=== PATIENT | female | born 1960 | race Caucasian/White ===

== ENCOUNTER 2020-09-09 07:18 | Outpatient (REF) | payer OTHER, SELFPAY ==
[2020-09-09 11:18] LABS: Hematocrit 44.7 % (37-47); Hemoglobin 14.2 g/dl (12.0-16.0); Mean Corpuscular HGB Conc 31.8 g/dl (31.0-35.0); Mean Corpuscular Hemoglobin 28.6 pg (27.0-33.0); Mean Corpuscular Volume 90.1 fL (80-98); Mean Platelet Volume 9.9 fL (9.4-12.3); Platelet Count 255 X10*3/uL (160-400); Red Blood Count 4.96 X10*6/uL (4.20-5.50); Red Cell Distribution Width 12.5 % (11.0-16.0); White Blood Count 4.7 X10*3/uL (4.8-10.8)
[2020-09-09 11:43] LABS: Alanine Aminotransferase 16 U/L (0-31); Anion Gap 13 (12-20); Aspartate Amino Transferase 22 U/L (5-31); Blood Urea Nitrogen 19 mg/dL (9-16); Calcium 8.7 mg/dL (8.4-10.2); Carbon Dioxide 27 mmol/L (22-29); Chloride 100 mmol/L (96-108); Cholesterol 188 mg/dL; Estimated Glomerular Filt Rate > 60; Glucose Fasting 87 mg/dL (60-99); HDL Cholesterol 60 mg/dL; LDL Cholesterol Calculated 115 mg/dl; Potassium 4.1 mmol/L (3.3-5.1); Sodium 136 mmol/L (135-145); Triglycerides 68 mg/dL
[2020-09-09 12:06] LABS: Free T4 (Free Thyroxine) 1.12 ng/dL (0.71-1.85); Thyroid Stimulating Hormone 3.99 uIU/mL (0.32-4.0); Vitamin D 25-OH Total 42.9 ng/mL (>30)
== END 2020-09-09 07:19 | disposition home or self-care (01) ==
LOC: HO.HMGCLDS 07:18
PROVIDERS: PCP Internal Medicine; Visit Provider Internal Medicine
DX: E78.5 Hyperlipidemia, unspecified (principal); E03.9 Hypothyroidism, unspecified; M85.852 Other specified disorders of bone density and structure, left thigh; Z78.0 Asymptomatic menopausal state
CPT/HCPCS: 36415; 80048; 80061; 82306; 84439; 84443; 84450; 84460; 85027

== ENCOUNTER 2021-04-13 08:18 | Outpatient (REF) | payer OTHER, SELFPAY ==
--- NOTE | ~2021-04-13 | MM_ITS ---
EXAMINATION: MM SCREENING DIGITAL BREAST TOMOSYNTHESIS, BILATERAL CLINICAL INFORMATION: Screening. Asymptomatic. The lifetime risk of breast cancer based on the Tyrer-Cuzick Model is 19.4%. COMPARISON: Mammography: April 08, 2020 and studies dating back to February 19, 2014 TECHNIQUE: Digital breast tomosynthesis is performed in both the craniocaudal and mediolateral oblique views along with computer-aided detection (CAD). Synthesized 2D images are generated from the tomosynthesis. FINDINGS: The breasts are heterogeneously dense, which may obscure small masses (ACR BI-RADS breast composition Category c). There are no significant masses, abnormal calcifications, or other abnormalities. MM/MM tomosynthesis screening BI IMPRESSION: There are no significant changes from prior study. ASSESSMENT: BI-RADS 1: Negative RECOMMENDATION: Routine annual mammography screening. This patient's information was entered into a reminder system with a target due date for their next mammogram.
--- NOTE | ~2021-04-13 | MM_ITS ---
EXAMINATION: BONE DENSITOMETRY CLINICAL INDICATION: Other specified disorders of bone density and structure. COMPARISON: Baseline BD dated 08/14/2015. TECHNIQUE: Using a [employer] DXA System (software version: 13.1) manufactured by [employer], dual-energy x-ray absorptiometry was performed of the lumbar spine and left hip. The images are of good technical quality. Summary results are attached. FINDINGS: AP SPINE L1-L4: Current: BMD 1.345 g/cm2, Z-score 2.8, T-score 1.4, normal, 1.2% increase from baseline (<5% change is not significant). Baseline: BMD 1.329 g/cm2. LEFT FEMUR, NECK: Current: BMD 0.768 g/cm2, Z-score -0.6, T-score -1.9, osteopenia. Baseline: BMD 0.856 g/cm2. LEFT FEMUR, TOTAL: Current: BMD 0.853 g/cm2, Z-score -0.2, T-score -1.2, osteopenia, 2.7% decrease from baseline (<5% change is not significant). Baseline: BMD 0.877 g/cm2. IDENTIFIED RISK FACTORS: Menopause. HISTORY OF FRACTURE: None listed. MEDICATIONS: Calcium supplements or multivitamin, vitamin D. MM/XR DEXA axial skeleton IMPRESSION: 1. DIAGNOSIS: Osteopenia based on the lowest T-score value of -1.9 in the femoral neck applying World Health Organization criteria. 2. 10-YEAR FRACTURE RISK PREDICTION, FRAX: Major osteoporotic fracture (clinical spine, forearm, hip or shoulder) 9.7%. Hip fracture 1.3%. 3. Treatment Recommendations: NOF guidelines recommend consideration for treatment in postmenopausal women and men age 50 and older presenting with the following: -A hip or vertebral (clinical or morphometric) fracture. -T-score less than or equal to -2.5 at the femoral neck or spine after appropriate evaluation to exclude secondary causes. -Low bone mass at the hip or spine and a 10-year fracture probability by FRAX of greater than or equal to 3% for hip fracture or greater than or equal to 20% for major osteoporotic fracture based on the [place] adapted WHO algorithm. 4. Other Recommendations: All treatment decisions require clinical judgment and consideration of individual patient factors, including patient preferences, comorbidities, previous drug use, risk factors not captured in the FRAX model (e.g. frailty, falls, vitamin D deficiency, increased bone turnover, interval significant decline in bone density) and possible under or overestimation of fracture risk by FRAX. Additional medical evaluation for secondary cause of low bone mineral density may be appropriate. FUTURE SCAN RECOMMENDATION: People with diagnosed cases of osteoporosis or at high risk for fracture should have regular bone mineral density tests. For patients eligible for Medicare, routine testing is allowed once every 2 years. The testing frequency can be increased to one year for patients who have rapidly progressing disease, those who are receiving or discontinuing medical therapy to restore bone mass, or have additional risk factors.
[2021-04-13 12:02] LABS: Alanine Aminotransferase 18 U/L (0-31); Aspartate Amino Transferase 19 U/L (5-31); Cholesterol 190 mg/dL; HDL Cholesterol 63 mg/dL; LDL Cholesterol Calculated 112 mg/dl; Triglycerides 79 mg/dL
[2021-04-13 12:25] LABS: Free T4 (Free Thyroxine) 1.05 ng/dL (0.71-1.85); Thyroid Stimulating Hormone 3.78 uIU/mL (0.32-4.0)
== END 2021-04-13 08:19 | disposition home or self-care (01) ==
LOC: HO.MAMMO 08:18
PROVIDERS: PCP Internal Medicine; Visit Provider Internal Medicine
DX: Z12.31 Encounter for screening mammogram for malignant neoplasm of breast (principal); Z13.820 Encounter for screening for osteoporosis; M85.852 Other specified disorders of bone density and structure, left thigh; Z78.0 Asymptomatic menopausal state; E78.5 Hyperlipidemia, unspecified; E03.9 Hypothyroidism, unspecified; Z79.899 Other long term (current) drug therapy
CPT/HCPCS: 36415; 77063; 77067; 77080; 80061; 82306; 84439; 84443; 84450; 84460

== ENCOUNTER 2021-10-13 08:40 | Outpatient (REF) | payer OTHER, SELFPAY ==
[2021-10-13 12:20] LABS: Alanine Aminotransferase 18 U/L (0-31); Anion Gap 12 (12-20); Aspartate Amino Transferase 21 U/L (5-31); Blood Urea Nitrogen 15 mg/dL (9-16); Calcium 9.5 mg/dL (8.4-10.2); Carbon Dioxide 28 mmol/L (22-29); Chloride 102 mmol/L (96-108); Cholesterol 187 mg/dL; Estimated Glomerular Filt Rate > 60; Glucose Fasting 100 mg/dL (60-99); HDL Cholesterol 57 mg/dL; LDL Cholesterol Calculated 115 mg/dl; Potassium 4.5 mmol/L (3.3-5.1); Sodium 137 mmol/L (135-145); Triglycerides 76 mg/dL
[2021-10-13 12:47] LABS: Free T4 (Free Thyroxine) 1.11 ng/dL (0.71-1.85); Thyroid Stimulating Hormone 3.49 uIU/mL (0.32-4.0)
[2021-10-14 14:31] LABS: Vitamin D 25-OH Total 40.5 ng/mL (>30)
== END 2021-10-13 08:41 | disposition home or self-care (01) ==
LOC: HO.HMGCLDS 08:40
PROVIDERS: Visit Provider Internal Medicine
DX: E03.9 Hypothyroidism, unspecified (principal); E78.5 Hyperlipidemia, unspecified; M85.852 Other specified disorders of bone density and structure, left thigh; I10 Essential (primary) hypertension; Z78.0 Asymptomatic menopausal state
CPT/HCPCS: 36415; 80048; 80061; 82306; 84439; 84443; 84450; 84460

== ENCOUNTER 2022-01-14 08:28 | Day surgery (SDC) | payer OTHER, SELFPAY ==
[2022-01-07 12:41] VITALS: BMI 24.6
--- NOTE | 2022-01-12 15:16 | P.CONAN_ITS ---
Documented by User: Gisela Baig NP 01/12/22 15:17 HPI - Anesthesia Eval Consult details Narrative: 61yo F for Colonoscopy PMFSH Active Problems Active Problems: All Active Problems (Updated 10/18/21 @ 10:48 by Savita Butterfield MD) Anxiety with flying (Acute) Hx of malignant melanoma (Acute) Osteopenia of multiple sites (Acute) Malignant melanoma of chest wall (Acute) Tubular adenoma of colon (Acute) Acquired hypothyroidism (Acute) Postmenopausal (Acute) Dyslipidemia (Acute) Past Medical History Medical History (Updated 10/18/21 @ 10:48 by Savita Butterfield MD) History of mammogram History of Papanicolaou smear of cervix Family History Family History Father HTN (hypertension) Hyperlipidemia Sepsis Mother Medical history non-contributory Brother No problems noted. Brother No problems noted. Sister No problems noted. Son No problems noted. Daughter No problems noted. Surgical History Surgical History H/O melanoma excision History of colonoscopy History of lipoma Social History Social History Housing: House Alcohol intake: current Alcohol intake frequency: does not drink Patient Tobacco Use Status: Never used Tobacco e-Cigarette/Vaping Use: Never Used Second Hand Smoke Exposure: No Use of substances other than those prescribed or required for medical reasons: No Are you DNR?: No Advance Directives: No Advance Directives Information Provided: Yes Advance Directives on File: No Current occupational status: retired Cognitive needs: No Hearing needs: No Vision needs: No Meds Allergies Allergy/AdvReac Type Severity Reaction Status Date / Time No Known Allergies Allergy Verified 10/18/21 09:57 [No Known Allergies*] Exam Exam Date and Time: January 12, 2022 1516 Height,Weight and Vital Signs: Height 5 ft 4.5 in Weight 66.224 kg Pertinent Lab Results Pertinent Lab Results: Laboratory Tests 10/13/21 08:47 Sodium 137 Potassium 4.5 Chloride 102 Carbon Dioxide 28 BUN 15 Creatinine 0.79 Assessment and Plan Assessment Anesthesia Assessment: Chart Reviewed Documented by User: Jorge Lazo MD 01/18/22 19:02 [facility] Past Medical History Medical History (Updated 10/18/21 @ 10:48 by Savita Butterfield MD) History of mammogram History of Papanicolaou smear of cervix Functional capacity: independent ambulation Family History Family History Father HTN (hypertension) Hyperlipidemia Sepsis Mother Medical history non-contributory Brother No problems noted. Brother No problems noted. Sister No problems noted. Son No problems noted. Daughter No problems noted. Family history of problems with anesthesia: No Surgical History Surgical History H/O melanoma excision History of colonoscopy History of lipoma History of Problems with Anesthesia: No Social History Social History Housing: House Alcohol intake: current Alcohol intake frequency: does not drink Patient Tobacco Use Status: Never used Tobacco e-Cigarette/Vaping Use: Never Used Second Hand Smoke Exposure: No Use of substances other than those prescribed or required for medical reasons: No Are you DNR?: No Advance Directives: No Advance Directives Information Provided: Yes Advance Directives on File: No Current occupational status: retired Cognitive needs: No Hearing needs: No Vision needs: No Meds Allergies Allergy/AdvReac Type Severity Reaction Status Date / Time No Known Allergies Allergy Verified 10/18/21 09:57 [No Known Allergies*] Exam Airway Mallampati Class: II TM Dist: >3cm Neck ROM: Full Loose/Missing/Broken Teeth: Yes Heart: S1,S2 Lungs: b/l breath sounds Assessment and Plan Assessment Anesthesia Assessment: Anesthesia Plan Discussed Final Anesthetic Review Family History of Problems with Anesthesia: No History of Problems with Anesthesia: No NPO: Yes ASA Class: II Final Preanesthetic Review: Meds/Allgs Chart Reviewed, Consent Obtained/Reviewed and Anes Risks/Benef Reviewed Patient Risk: Intermediate Procedure Risk: Intermediate Anesthetic Plan Anesthetic Plan: MAC: Disposition: Standard PACU
[2022-01-14 08:35] VITALS: BP 154/86; PULSE 118; RESP 16; TEMP 36.7; O2SAT 100; BMI 23.3
[2022-01-14] MEDS: Lactated Ringers 1,000 ML 100 ML IVCONT (08:58)
[2022-01-14 10:33] VITALS: BP 110/68; PULSE 98; RESP 19; TEMP 37.1; O2SAT 98
--- NOTE | 2022-01-14 10:35 | P.BOP_ITS ---
Brief Operative Note Date of Service: 01/14/22 Pre-op diagnosis: Screening Post-op diagnosis: other (Colon polyps) Procedure: Colonoscopy to the cecum and TI with biopsy and removal of polyps Surgeon: Medhat Alvarado Anesthesia: MAC Was an Electroencephalograph Technician used for this Procedure?: No Estimated blood loss (mL): 2.0 Pathology: other (A. Polyp at 40cm B. Polyp at 20cm C. Polyp at 12cm) Condition: stable Disposition: PACU
[2022-01-14 10:48] VITALS: BP 121/71; PULSE 80; RESP 16; TEMP 36.7; O2SAT 99
--- NOTE | 2022-01-14 11:16 | OP_ITS ---
SURGEON: Medhat Alvarado MD INDICATIONS: The patient presents for evaluation of colorectal cancer screening and personal history of tubular adenoma of the colon. Full consent was obtained from her for this, including risks of bleeding and perforation. PREOPERATIVE DIAGNOSIS: POSTOPERATIVE DIAGNOSIS: PROCEDURE PERFORMED: Colonoscopy to the cecum and terminal ileum with biopsy and removal of polyps. ESTIMATED BLOOD LOSS: COMPLICATIONS: ANESTHESIA: Monitored anesthesia care. ASSISTANTS: SPECIMENS: PREOPERATIVE DIAGNOSES: Colorectal cancer screening and personal history of tubular adenoma of the colon. POSTOPERATIVE DIAGNOSES: Colorectal cancer screening and personal history of tubular adenoma of the colon, small colon polyps, diverticulosis, internal hemorrhoids. DESCRIPTION OF PROCEDURE: The patient was placed in the left lateral decubitus position. The digital rectal exam revealed no abnormalities. The Olympus video pediatric colonoscope was entered into the rectum and advanced easily to the cecum. Once in the cecum, I did identify normal-appearing cecal pouch with appendiceal orifice and a normal-appearing ileocecal valve. The terminal ileum was cannulated and appeared normal. The scope was withdrawn back in the colon. The entire cecum and ileocecal valve appeared normal. Scope was slowly withdrawn assessing all mucosal surfaces carefully. Preparation was excellent. At 40 cm, 20 cm, and at 12 cm, were flat, approximately 3 or 4 mm polyps, which were each biopsied and completely removed with cold biopsy forceps. I did not visualize any other polyps, colitis, nor angiodysplasia. There was a mild amount of sigmoid diverticulosis. In the rectum, scope was retroflexed visualizing internal hemorrhoids, but no other pathology. The rectal mucosa appeared normal. Scope was straightened and withdrawn from the patient. She tolerated the procedure well and was returned to recovery area in stable condition. IMPRESSION: 1. Small colon polyps, status post biopsy and removal. 2. Diverticulosis. 3. Internal hemorrhoids. PLAN: The results of the pathology will be checked. I would recommend a repeat colonoscopy in 5 years for further surveillance. She was advised not to use any aspirin and NSAIDs for 1 week. MD CLAUDIA Bojorquez/JARETL / [phone]
== END 2022-01-14 11:35 | disposition home or self-care (01) ==
PROVIDERS: PCP Internal Medicine; Visit Provider Internal Medicine
PROC: 0DJD8ZZ Inspection of Lower Intestinal Tract, Via Natural or Artificial Opening Endoscopic (ICD-10-PCS; CPT 45378; principal; 2022-01-14 09:30)
DX: Z12.11 Encounter for screening for malignant neoplasm of colon (principal); Z86.010 Personal history of colon polyps; D12.5 Benign neoplasm of sigmoid colon; D12.8 Benign neoplasm of rectum; K57.30 Diverticulosis of large intestine without perforation or abscess without bleeding; K64.8 Other hemorrhoids; E03.9 Hypothyroidism, unspecified; Z85.820 Personal history of malignant melanoma of skin; Z79.899 Other long term (current) drug therapy
CPT/HCPCS: 45380; 88305; J3010

== ENCOUNTER 2022-04-15 09:05 | Outpatient (REF) | payer OTHER, SELFPAY ==
--- NOTE | ~2022-04-15 | MM_ITS ---
EXAMINATION: MM SCREENING DIGITAL BREAST TOMOSYNTHESIS, BILATERAL CLINICAL INFORMATION: Screening. Asymptomatic. The lifetime risk of breast cancer based on the Tyrer-Cuzick Model is 8%. COMPARISON: Mammography: 04/13/2021, 04/08/2020, 10/29/2018 TECHNIQUE: Digital breast tomosynthesis is performed in both the craniocaudal and mediolateral oblique views along with computer-aided detection (CAD). Synthesized 2D images are generated from the tomosynthesis. FINDINGS: There are scattered areas of fibroglandular density (ACR BI-RADS breast composition Category b). There are no significant masses, abnormal calcifications, or other abnormalities. No developing density or architectural abnormality. There is biopsy clip marker again seen upper outer quadrant right breast. A few tightly grouped stable uniform punctate round calcifications mid upper outer left breast. The axilla and skin contours are unremarkable. MM/MM tomosynthesis screening BI IMPRESSION: No mammographic evidence of malignancy. ASSESSMENT: BI-RADS 2: Benign RECOMMENDATION: Routine annual mammography screening. This patient's information was entered into a reminder system with a target due date for their next mammogram.
== END 2022-04-15 09:06 | disposition home or self-care (01) ==
LOC: HO.MAMMO 09:05
PROVIDERS: PCP Internal Medicine; Visit Provider Nurse Practitioner Adult Health
DX: Z12.31 Encounter for screening mammogram for malignant neoplasm of breast (principal)
CPT/HCPCS: 77063; 77067

== ENCOUNTER 2022-10-17 09:09 | Outpatient (REF) | payer OTHER, SELFPAY ==
[2022-10-17 12:08] LABS: Alanine Aminotransferase 18 U/L (0-31); Aspartate Amino Transferase 21 U/L (5-31); Cholesterol 217 mg/dL; HDL Cholesterol 55 mg/dL; LDL Cholesterol Calculated 145 mg/dl; Triglycerides 87 mg/dL
[2022-10-17 12:15] LABS: Free T4 (Free Thyroxine) 1.21 ng/dL (0.71-1.85); Thyroid Stimulating Hormone 3.15 uIU/mL (0.32-4.0)
== END 2022-10-17 09:10 | disposition home or self-care (01) ==
LOC: HO.HMGCLDS 09:09
PROVIDERS: PCP Internal Medicine; Visit Provider Internal Medicine
DX: E03.9 Hypothyroidism, unspecified (principal); E78.5 Hyperlipidemia, unspecified
CPT/HCPCS: 36415; 80061; 84439; 84443; 84450; 84460

== ENCOUNTER 2023-04-13 09:29 | Outpatient (REF) | payer OTHER, SELFPAY ==
[2023-04-13 12:40] LABS: Alanine Aminotransferase 15 U/L (0-31); Aspartate Amino Transferase 20 U/L (5-31); Cholesterol 179 mg/dL (<200); Glucose Fasting 96 mg/dL (60-99); HDL Cholesterol 61 mg/dL (>40); LDL Cholesterol Calculated 107 mg/dL (<100); Triglycerides 57 mg/dL (<150)
[2023-04-13 13:02] LABS: Thyroid Stimulating Hormone 4.22 uIU/mL (0.32-4.0); Vitamin D 25-OH Total 51.4 ng/mL (>30)
== END 2023-04-13 09:30 | disposition home or self-care (01) ==
LOC: HO.HMGCLDS 09:29
PROVIDERS: PCP Internal Medicine; Visit Provider Internal Medicine
DX: E03.9 Hypothyroidism, unspecified (principal); M85.89 Other specified disorders of bone density and structure, multiple sites; R73.01 Impaired fasting glucose; Z78.0 Asymptomatic menopausal state; E78.5 Hyperlipidemia, unspecified
CPT/HCPCS: 36415; 80061; 82306; 82947; 84439; 84443; 84450; 84460

== ENCOUNTER 2023-04-18 09:00 | Outpatient (REF) | payer OTHER, SELFPAY ==
--- NOTE | ~2023-04-18 | MM_ITS ---
EXAMINATION: BONE DENSITOMETRY CLINICAL INDICATION: Menopause. COMPARISON: Previous BD dated 04/13/2021 and baseline BD dated 08/14/2015. TECHNIQUE: Using a [employer] DXA System (software version: 13.1) manufactured by [employer], dual-energy x-ray absorptiometry was performed of the lumbar spine and left hip. The images are of good technical quality. Summary results are attached. FINDINGS: LEFT FEMUR, NECK: Current: BMD 0.708 g/cm2, Z-score -0.9, T-score -2.4, osteopenia. Prior: BMD 0.768 g/cm2. Baseline: BMD 0.856 g/cm2. LEFT FEMUR, TOTAL: Current: BMD 0.827 g/cm2, Z-score -0.3, T-score -1.4, osteopenia, 3.0% decrease from previous, 5.7% decrease from baseline (<5% change is not significant). Prior: BMD 0.853 g/cm2. Baseline: BMD 0.877 g/cm2. AP SPINE L1-L4: Current: BMD 1.299 g/cm2, Z-score 2.5, T-score 1.0, normal, 3.4% decrease from previous, 2.3% decrease from baseline (<5% change is not significant). Prior: BMD 1.345 g/cm2. Baseline: BMD 1.329 g/cm2. IDENTIFIED RISK FACTORS: Menopause. HISTORY OF FRACTURE: None listed. MEDICATIONS: Calcium, vitamin D. MM/XR DEXA axial skeleton IMPRESSION: 1. DIAGNOSIS: Osteopenia based on the lowest T-score value of -2.4 in the femoral neck applying World Health Organization criteria. 2. 10-YEAR FRACTURE RISK PREDICTION, FRAX: Major osteoporotic fracture (clinical spine, forearm, hip or shoulder) 12.2%. Hip fracture 2.3%. 3. Treatment Recommendations: NOF guidelines recommend consideration for treatment in postmenopausal women and men age 50 and older presenting with the following: -A hip or vertebral (clinical or morphometric) fracture. -T-score less than or equal to -2.5 at the femoral neck or spine after appropriate evaluation to exclude secondary causes. -Low bone mass at the hip or spine and a 10-year fracture probability by FRAX of greater than or equal to 3% for hip fracture or greater than or equal to 20% for major osteoporotic fracture based on the [place] adapted WHO algorithm. 4. Other Recommendations: All treatment decisions require clinical judgment and consideration of individual patient factors, including patient preferences, comorbidities, previous drug use, risk factors not captured in the FRAX model (e.g. frailty, falls, vitamin D deficiency, increased bone turnover, interval significant decline in bone density) and possible under or overestimation of fracture risk by FRAX. Additional medical evaluation for secondary cause of low bone mineral density may be appropriate. FUTURE SCAN RECOMMENDATION: People with diagnosed cases of osteoporosis or at high risk for fracture should have regular bone mineral density tests. For patients eligible for Medicare, routine testing is allowed once every 2 years. The testing frequency can be increased to one year for patients who have rapidly progressing disease, those who are receiving or discontinuing medical therapy to restore bone mass, or have additional risk factors.
== END 2023-04-18 09:01 | disposition home or self-care (01) ==
LOC: HO.MAMMO 09:00
PROVIDERS: PCP Internal Medicine; Visit Provider Internal Medicine
DX: Z12.31 Encounter for screening mammogram for malignant neoplasm of breast (principal); Z13.820 Encounter for screening for osteoporosis; Z78.0 Asymptomatic menopausal state; M85.89 Other specified disorders of bone density and structure, multiple sites
CPT/HCPCS: 77063; 77067; 77080

== ENCOUNTER → 2023-04-18 09:00 | Outpatient (BNV) | payer OTHER, SELFPAY | PROVIDERS: PCP Internal Medicine; Visit Provider Radiology Diagnostic Radiology | DX: Z12.31 Encounter for screening mammogram for malignant neoplasm of breast (principal) | CPT/HCPCS: 77063; 77067 ==

== ENCOUNTER 2023-04-18 11:15 | Outpatient (AMB) | payer OTHER, SELFPAY ==
--- NOTE | 2023-04-18 11:16 | A.OFFPC_ITS ---
Vital Signs 04/18/23 11:21 Height 5 ft 4.5 in Weight 142 lb BMI 24.0 BP 125/72 Blood Pressure Location Rt brachial Position Sitting Pulse 92 Pulse Source Pulse Oximeter Pulse Oximetry (%) 98 Intake Visit Reasons: 6m follow up hypothyroidism Intake Note: Pt is here today for her 6 mo. hypothyroidism Allergies No Known Allergies [No Known Allergies*] Allergy (Verified 04/18/23 11:37) Medication List - Last Reconciled 04/18/23 by Savita Butterfield MD atorvastatin 10 mg PO 2XW clonazepam 0.5 mg PO BID PRN levothyroxine 50 mcg PO QAM Tobacco use date assessed: 04/18/23 Fall risk assessment: No Falls in past year Last assessed Fall Risk: 04/18/23 Dental Screening Dental Screen Date: 04/18/23 Did you have a dental visit in the last 12 months?: Yes Did you have a dental problem in the last 6 months where you did not have access to dental care?: No Was dental information given to patient?: Patient has dentist HPI 6m follow up hypothyroidism HPI Details 63-year-old lady with history of hypothy roidism, dyslipidemia, has prediabetes, here today for follow-up. She has been compliant with her medications and has been following recommended diet. States that she exercises at least 3 to 4 times a week, stays active all the time, no complaints at present time. Patient states that she is going to be traveling , and would like a refill to be sent to her pharmacy for clonazepam which she takes only as needed when flying or doing long distance but strips. [facility] Medical History Impaired fasting glucose Anxiety with flying Hx of malignant melanoma Osteopenia of multiple sites Malignant melanoma of chest wall History of mammogram History of Papanicolaou smear of cervix Tubular adenoma of colon Acquired hypothyroidism Postmenopausal Dyslipidemia Surgical History H/O melanoma excision History of lipoma History of colonoscopy Family History Father HTN (hypertension) Hyperlipidemia Sepsis Mother Medical history non-contributory Brother No problems noted. Brother No problems noted. Sister No problems noted. Son No problems noted. Daughter No problems noted. Social History Housing: House Alcohol intake: current Alcohol intake frequency: does not drink Patient Tobacco Use Status: Never used Tobacco e-Cigarette/Vaping Use: Never Used Second Hand Smoke Exposure: No Current occupational status: retired Cognitive needs: No Hearing needs: No Vision needs: Yes Questionnaire PHQ-9 Over the last 2 weeks, how often have you been bothered by any of the following problems? Depression Screening Interpretation: Negative Source: Developed by Drs. Medhat Catherine, Ofelia Bustos, Ezequiel Crow and colleagues, with an educational pepper from [employer]. Thrive Questionnaire Date Thrive assessed: 04/18/23 I am a: Patient What is your living situation today?: I have a steady place to live Within the past 12 months, did the food you bought not last and you didn't have the money to get more?: Never true Within the past 12 months, did you worry whether your food would run out before you got money to buy more?: Never true Do you have trouble paying for medicines?: No Do you have trouble getting transportation to medical appointments?: No Do you have trouble paying your heating and electricity bill?: No Do you have trouble taking care of your child, family member or friend?: No Do you have trouble with day-to-day activities such as bathing, preparing meals, shopping, managing finances, etc.?: No Are you currently unemployed and looking for a job?: No Are you interested in more education?: No AUDIT C Alcohol Use Questionnaire (AUDIT-C) 1. How often do you have a drink containing alcohol?: Never Total Score: 0 ALEXX-7 AMB Questionnaire ALEXX-7 Date ALEXX - 7 assessed: 10/18/21 Source: Developed by Drs. Medhat Catherine, Ofelia Bustos, Ezequiel Crow and colleagues, with an educational pepper from [employer]. Review of Systems Const Denies body aches, Denies fatigue, Denies fever(s), Denies headache(s) and Denies weakness Eyes Details: sees Dr Lucio in [place] Denies change in vision, Denies eye discharge and Denies itchy eyes ENT Denies dizziness, Denies headache(s), Denies nasal congestion, Denies nasal discharge and Denies sore throat Card Denies chest pain, Denies lightheadedness, Denies palpitations and Denies dyspnea Resp Denies chest congestion, Denies cough, Denies dyspnea and Denies wheezing GI Denies abdominal pain, Denies change in bowel habits and Denies heartburn Denies urinary frequency, Denies dysuria and Denies urinary urgency Musc Denies back pain, Denies myalgias, Denies arthralgias and Denies joint swelling Skin/Breast Denies lesions and Denies rash Neuro Denies behavioral changes, Denies dizziness, Denies headache(s) and Denies weakness Psych Denies anxiety, Denies behavioral changes, Denies change in appetite and Denies depression Endo Denies fatigue, Denies polydipsia, Denies polyuria and Denies palpitations Merritt/Lymph Denies easy bruising Aller/Immun Denies itchy eyes, Denies seasonal rhinorrhea and Denies wheezing Physical exam (Primary Care) Vital Signs: Last Vital Signs Pulse 92 04/18/23 11:21 BP 125/72 04/18/23 11:21 Pulse Ox 98 04/18/23 11:21 BMI result Body Mass Index 24.0 Tobacco/Smoking Status: Tobacco use Status Tobacco use date assessed 04/18/23 04/18/23 11:17 Patient Tobacco Use Status Never used Tobacco 04/18/23 11:17 e-Cigarette/Vaping Use Never Used 04/18/23 11:17 Depression Screening Interpretation: Negative Thrive Assessment: Date of Thrive Assessment Date Thrive assessed 04/18/23 04/18/23 11:27 Const Orientation/consciousness: patient oriented x3 HENGA Head: Yes normocephalic and Yes atraumatic Ears: hearing grossly normal bilaterally, TM's normal bilaterally and EAC's normal General nose exam: Normal external nose present and No nasal discharge present Mouth: Normal oral and palatal mucosa present and moist mucous membranes Eyes General: appearance normal, both eyes and all related structures (sees Dr Lucio regularly for her eye exam) Neck Neck: Yes full ROM, Yes no lymphadenopathy, Yes no meningeal signs and Yes supple Thyroid: Thyroid normal Resp Effort & Inspection: normal respiratory effort Auscultation: clear to auscultation bilaterally Cardio Other: S1-S2 present regular rate Palpation: normal PMI Bruits: no abdominal aortic bruits GI Inspection: Yes normal to inspection Palpation (GI): No Abdominal aortic bruit present, Soft to palpation, nontender, no guarding and no masses Auscultation: normal bowel sounds Skin General skin exam: no rashes or lesions noted (some freckles on upper back) Neuro General: patient oriented x3, gait normal, tone normal, moves all extremities, Normal light touch and pain sensation, no meningeal signs, no focal motor deficits and CN's II-XI intact bilaterally Gait exam (Neuro): Normal gait present Extrem General: Yes full ROM, Yes no joint enlargement, Yes no pedal edema, Yes no calf tenderness and Yes normal gait Psych Appearance: grossly normal Mental Status: mental status grossly normal Speech and movement: Normal speech and movement present Affect: normal affect Attitude: cooperative Thought process: Normal thought process present Thought content: Normal thought content present Results Reviewed Results Reviewed: RUN: 04/18/23 1136 PAGE 1 [facility] [address] [place] [id number] Blind Stitch Machine Operator: Kemar Ca M.D. Specimen Inquiry Name: Liseth Rebolledo Age/Sex: 63/F [facility] 1960 [id number]#: [id number] Attend Dr: Savita Butterfield MD Re04/13/23 Status: DEP REF Location: [facility] Disch: SPEC : [id number] MARY: 04/13/23 STATUS: COMP REQ : [id number] RECD: 04/13/[address]: Savita Butterfield MD COMP: 04/13/23 ENTERED: 04/13/[address]: ORDERED: Glu Fasting, AST, ALT, Lipid Panel, Vitamin D 25-OH, Free T4, TSH Test Result Flag Reference Site FBS 96 60-99 mg/dL AST (GOT) 20 5-31 U/L ALT (GPT) 15 0-31 U/L Triglyceride 57 <150 mg/dL Desirable Triglyceride: less than 150 mg/dL Borderline High Triglyceride 150-199 mg/dL High Triglyceride: 200-499 mg/dL Very High Triglyceride: greater than or equal to 5OO mg/dL Cholesterol 179 <200 mg/dL Desirable Cholesterol: less than 200 mg/dL Borderline High Cholesterol: 200-239 mg/dL High Cholesterol: greater than 239 mg/dL LDL Calculated 107 H <100 mg/dL Desirable LDL: less than 100 mg/dL Near Optimal/Above Optimal LDL: 110-129 mg/dL Borderline High LDL: 130-159 mg/dL High LDL: 160-189 mg/dL Very High LDL: greater than or equal to 190 mg/dL HDL 61 >40 mg/dL Desirable HDL: greater than 40 mg/dL Note: This HDL assay may give artificially low results in patients with liver disease. Vit D 25-OH Tot 51.4 >30 ng/mL Health Based Reference Values* < 20 ng/mL Deficient 20-30 ng/mL Insufficient > 30 ng/mL Sufficient *Breana HARRIS. N Engl J Med. 2007;[id number] Care must be taken in interpreting Vitamin D results from different laboratories and methodologies. Published data demonstrated that results from patients undergoing hemodialysis may show a negative bias when tested with various automated 25-OH vitamin D assays when compared to LC-MS/MS. When testing samples from patients whose predominant form of Vitamin D is Vitamin D2, such as patients receiving Vitamin D2 supplementation, results that are subtherapeutic should be confirmed with another method such as LC-MS/MS. Free T4 1.10 0.71-1.85 ng/dL TSH 3rd Gen. 4.22 H 0.32-4.0 uIU/mL Note: A sustained TSH level above 2.5 uIU/mL may warrant further investigation. TSH 3rd Generation ([facility]) Assessment and Plan Assessment & Plan (1) Acquired hypothyroidism: Code(s): E03.9 - Hypothyroidism, unspecified Plan: Recent thyroid levels are within normal limits, continued on levothyroxine 50 mcg daily, patient has been feeling well on current dose. (2) Impaired fasting glucose: Code(s): R73.01 - Impaired fasting glucose Plan: Fasting blood sugar today is normal at 96 mg/dL. Continue with adhering to healthy eating habits and getting regular exercise. (3) Anxiety with flying: Code(s): F40.243 - Fear of flying Plan: Refill sent for her clonazepam to take only as needed for acute anxiety attacks during travel (4) Osteopenia of multiple sites: Code(s): M85.89 - Other specified disorders of bone density and structure, multiple sites Plan: Patient has already an appointment made for her repeat bone density scan, continue with regular weight-bearing exercise and taking [id number] vitamin-D 3 at 2000 units daily and adequate calcium from dietary sources (5) Dyslipidemia: Code(s): E78.5 - Hyperlipidemia, unspecified Plan: Fasting lipid panel are within normal limits, will continue on atorvastatin 10 mg taken only twice a week. Reinforced importance of adhering to healthy eating habits and regular exercise. Medications: Refilled clonazepam 0.5 mg PO BID PRN 10 tabs 0RF anxiety with flying Coding Level of Care Code Est Pt Level 4 (85483) Diagnoses Acquired hypothyroidism E03.9 Impaired fasting glucose R73.01 Anxiety with flying F40.243 Osteopenia of multiple sites M85.89 Dyslipidemia E78.5
[2023-04-18 11:21] VITALS: BP 125/72; PULSE 92; O2SAT 98; BMI 24.0
== END 2023-04-18 11:55 | disposition home or self-care (01) ==
PROVIDERS: Visit Provider Internal Medicine
DX: E03.9 Hypothyroidism, unspecified (principal); R73.01 Impaired fasting glucose; F40.243 Fear of flying; M85.89 Other specified disorders of bone density and structure, multiple sites; E78.5 Hyperlipidemia, unspecified
CPT/HCPCS: 99214

== ENCOUNTER 2023-10-31 09:02 | Outpatient (REF) | payer OTHER, SELFPAY ==
[2023-10-31 11:26] LABS: Alanine Aminotransferase 17 U/L (0-31); Anion Gap 12 (12-20); Aspartate Amino Transferase 20 U/L (5-31); Blood Urea Nitrogen 15 mg/dL (9-16); Calcium 9.2 mg/dL (8.4-10.2); Carbon Dioxide 27 mmol/L (22-29); Chloride 104 mmol/L (96-108); Cholesterol 181 mg/dL (<200); Estimated Glomerular Filt Rate > 60; Free T4 (Free Thyroxine) 1.12 ng/dL (0.71-1.85); Glucose Fasting 107 mg/dL (60-99); HDL Cholesterol 56 mg/dL (>40); LDL Cholesterol Calculated 111 mg/dL (<100); Potassium 3.7 mmol/L (3.3-5.1); Sodium 139 mmol/L (135-145); Triglycerides 73 mg/dL (<150); Vitamin D 25-OH Total 42.2 ng/mL (>30)
== END 2023-10-31 09:03 | disposition home or self-care (01) ==
LOC: HO.HMGCLDS 09:02
PROVIDERS: PCP Internal Medicine; Visit Provider Internal Medicine
DX: R73.01 Impaired fasting glucose (principal); M85.89 Other specified disorders of bone density and structure, multiple sites; E03.9 Hypothyroidism, unspecified; E78.5 Hyperlipidemia, unspecified; Z78.0 Asymptomatic menopausal state
CPT/HCPCS: 36415; 80048; 80061; 82306; 84439; 84443; 84450; 84460

== ENCOUNTER 2023-11-07 09:52 | Outpatient (AMB) | payer OTHER, SELFPAY ==
[2023-11-07 09:56] VITALS: BP 130/75; PULSE 98; O2SAT 98; BMI 23.8
--- NOTE | 2023-11-07 09:56 | A.OFFPC_ITS ---
Vital Signs 11/07/23 09:56 Height 5 ft 4.5 in Weight 141 lb BMI 23.8 BP 130/75 Position Sitting Pulse 98 Pulse Source Pulse Oximeter Pulse Oximetry (%) 98 Oxygen Delivery Method Room Air Intake Visit Reasons: Annual PE Intake Note: Pt is here today for her PE: last mammogram 04/18/23, papsmear 02/24/20 and colonoscopy 01/11/17 Allergies No Known Allergies [No Known Allergies*] Allergy (Verified 11/07/23 10:42) Medication List - Last Reconciled 11/07/23 by Savita Butterfield MD atorvastatin 10 mg PO 2XW clonazepam 0.5 mg PO BID PRN levothyroxine 50 mcg PO QAM Tobacco use date assessed: 11/07/23 Dental Screening Dental Screen Date: 11/07/23 HPI Annual PE HPI Details 63-year-old lady with hypothyroidism, im paired fasting glucose, and hyperlipidemia, here today for her physical exam. She has been feeling, with no complaints at present time, up-to-date with all her vaccines, adhering to recommended diet but does admit to occasionally cheating during the winter . She stays active, walks regularly , but latest bone density scan done last year showed osteopenia in left femoral neck and left femur, unchanged from previous scan. Normal bone density in lumbar spine. She is up-to-date with her screening mammogram last done 04/18/23, had a pap smear 02/24/20 and colonoscopy 01/11/17. She is up-to-date with all her vaccines. Latest fasting labs showed higher LDL cholesterol and fasting glucose level as compared to last check. thyroid levels are within normal [facility] Medical History Impaired fasting glucose Anxiety with flying Hx of malignant melanoma Osteopenia of multiple sites Malignant melanoma of chest wall History of mammogram History of Papanicolaou smear of cervix Tubular adenoma of colon Acquired hypothyroidism Postmenopausal Dyslipidemia Surgical History H/O melanoma excision History of lipoma History of colonoscopy Family History Father HTN (hypertension) Hyperlipidemia Sepsis Mother Medical history non-contributory Brother No problems noted. Brother No problems noted. Sister No problems noted. Son No problems noted. Daughter No problems noted. Social History Housing: House Alcohol intake: current Alcohol intake frequency: does not drink Patient Tobacco Use Status: Never used Tobacco e-Cigarette/Vaping Use: Never Used Second Hand Smoke Exposure: No Current occupational status: retired Cognitive needs: No Hearing needs: No Vision needs: Yes Questionnaire PHQ-9 Over the last 2 weeks, how often have you been bothered by any of the following problems? 1. Little interest or pleasure in doing things: not at all 2. Feeling down, depressed, or hopeless: not at all 3. Trouble falling or staying asleep, or sleeping too much: not at all 4. Feeling tired or having little energy: not at all 5. Poor appetite or overeating: not at all 6. Feeling bad about yourself - or that you are a failure or have let yourself or your family down: not at all 7. Trouble concentrating on things, such as reading the newspaper or watching television: not at all 8. Moving or speaking so slowly that other people could have noticed. Or the opposite - being so fidgety or restless that you have been moving around a lot more than usual: not at all 9. Thoughts that you would be better off or of hurting yourself in some way: not at all Total score: 0 Depression Screening Interpretation: Negative Depression Screening Done: Yes 36960 - PHQ-9 Billing: Yes Source: Developed by Drs. Medhat Catherine, Ofelia Bustos, Ezequiel Crow and colleagues, with an educational pepper from [employer]. Thrive Questionnaire Date Thrive assessed: 11/07/23 I am a: Patient What is your living situation today?: I have a steady place to live Within the past 12 months, did the food you bought not last and you didn't have the money to get more?: Never true Within the past 12 months, did you worry whether your food would run out before you got money to buy more?: Never true Do you have trouble paying for medicines?: No Do you have trouble getting transportation to medical appointments?: No Do you have trouble paying your heating and electricity bill?: No Do you have trouble taking care of your child, family member or friend?: No Do you have trouble with day-to-day activities such as bathing, preparing meals, shopping, managing finances, etc.?: No Are you currently unemployed and looking for a job?: No Are you interested in more education?: No THRIVE Score: 0 AUDIT C Alcohol Use Questionnaire (AUDIT-C) 1. How often do you have a drink containing alcohol?: Never Total Score: 0 ALEXX-7 AMB Questionnaire ALEXX-7 Date ALEXX - 7 assessed: 11/07/23 Feeling nervous, anxious, or on edge: 0 = Not at all Not being able to stop or control worryin = Not at all Worrying too much about different things: 0 = Not at all Trouble relaxin = Not at all Being so restless that it is hard to sit still: 0 = Not at all Becoming easily annoyed or irritable: 0 = Not at all Feeling afraid as if something awful might happen: 0 = Not at all Total ALEXX-7 score (0-4 normal; 5-9 mild; 10-14 moderate; 15-21 severe): 0 Source: Developed by Drs. Medhat Catherine, Ofelia Bustos, Ezequiel Crow and colleagues, with an educational pepper from [employer]. ALEXX-7 Assessment Billing ALEXX-7 Assessment Tool: ALEXX-7 Assessment 90788 Review of Systems Const Denies body aches, Denies fatigue, Denies fever(s), Denies headache(s) and Denies weakness Eyes Details: sees [facility] Lucio in [facility] Denies change in vision, Denies eye discharge and Denies itchy eyes ENT Denies dizziness, Denies headache(s), Denies nasal congestion, Denies nasal discharge and Denies sore throat Card Denies chest pain, Denies lightheadedness, Denies palpitations and Denies dyspnea Resp Denies chest congestion, Denies cough, Denies dyspnea and Denies wheezing GI Denies abdominal pain, Denies change in bowel habits and Denies heartburn Details: Sees Melody Chen for her routine Pap and pelvic exam, up-to-date Denies urinary frequency, Denies dysuria and Denies urinary urgency Musc Denies back pain, Denies myalgias, Denies arthralgias and Denies joint swelling Skin/Breast Details: Sees her manager pharmacy once a year Denies lesions and Denies rash Neuro Denies behavioral changes, Denies dizziness, Denies headache(s) and Denies weakness Psych Denies anxiety, Denies behavioral changes, Denies change in appetite and Denies depression Endo Denies fatigue, Denies polydipsia, Denies polyuria and Denies palpitations Merritt/Lymph Denies easy bruising Aller/Immun Denies itchy eyes, Denies seasonal rhinorrhea and Denies wheezing Physical exam (Primary Care) Vital Signs: Last Vital Signs Pulse 98 11/07/23 09:56 BP 130/75 11/07/23 09:56 Pulse Ox 98 11/07/23 09:56 Oxygen Delivery Method Room Air 11/07/23 09:56 BMI result Body Mass Index 23.8 Tobacco/Smoking Status: Tobacco use Status Tobacco use date assessed 11/07/23 11/07/23 09:58 Patient Tobacco Use Status Never used Tobacco 11/07/23 09:58 e-Cigarette/Vaping Use Never Used 11/07/23 09:58 PHQ-9: PHQ-9 Score PHQ-9: Total score 0 11/07/23 11:01 Depression Screening Interpretation: Negative Thrive Assessment: Date of Thrive Assessment Date Thrive assessed 11/07/23 11/07/23 10:28 Const Orientation/consciousness: patient oriented x3 HENMT Head: Yes normocephalic and Yes atraumatic Ears: hearing grossly normal bilaterally, TM's normal bilaterally and EAC's normal General nose exam: Normal external nose present and No nasal discharge present Mouth: Normal oral and palatal mucosa present and moist mucous membranes Eyes General: appearance normal, both eyes and all related structures (sees Dr Lucio regularly for her eye exam) Neck Neck: Yes full ROM, Yes no lymphadenopathy, Yes no meningeal signs and Yes supple Thyroid: Thyroid normal Chest Chest palpation & inspection: normal inspection of the chest Breast/axilla palpation: normal palpation of the breasts Resp Effort & Inspection: normal respiratory effort Auscultation: clear to auscultation bilaterally Cardio Other: S1-S2 present regular rate Palpation: normal PMI Bruits: no abdominal aortic bruits GI Inspection: Yes normal to inspection Palpation (GI): No Abdominal aortic bruit present, Soft to palpation, nontender, no guarding and no masses Auscultation: normal bowel sounds General: Yes no CVA tenderness and Yes deferred (Goes to her own OBGYN) Back/Spine/Pelvis Back: no CVA tenderness and No back tenderness Skin General skin exam: no rashes or lesions noted (some freckles on upper back) Neuro General: patient oriented x3, gait normal, tone normal, moves all extremities, Normal light touch and pain sensation, no meningeal signs, no focal motor deficits and CN's II-XI intact bilaterally Gait exam (Neuro): Normal gait present Extrem General: Yes full ROM, Yes no joint enlargement, Yes no pedal edema, Yes no calf tenderness and Yes normal gait Psych Appearance: grossly normal Mental Status: mental status grossly normal Speech and movement: Normal speech and movement present Affect: normal affect Attitude: cooperative Thought process: Normal thought process present Thought content: Normal thought content present Results Reviewed Results Reviewed: Name: Liseth Rebolledo Age/Sex: 63/F : 1960 Unit#: [id number] Attend Dr: Savita Butterfield MD Re10/31/23 Status: DEP REF Location: [facility] Disch: SPEC : [id number] MARY: 10/31/23 STATUS: COMP REQ : [id number] RECD: 10/31/23-[address]: Savita Butterfield MD COMP: 10/31/23 ENTERED: 10/31/23-[address]: ORDERED: Met Prof Fast, AST, ALT, Lipid Panel, Vitamin D 25-OH, Free T4, TSH Test Result Flag Reference Sodium 139 135-145 mmol/L Potassium 3.7 3.3-5.1 mmol/L CL 104 96-108 mmol/L CO2 27 22-29 mmol/L Gap 12 12-20 BUN 15 9-16 mg/dL Creat 0.78 0.5-1.4 mg/dL EGFR > 60 NOTE: For -[place] individuals, multiply the result by 1.210. Chronic Kidney Disease: Estimated GFR < 60 mL/min/1.73m2 Severe Kidney Disease: Estimated GFR < 15 mL/min/1.73m2 FBS 107 H 60-99 mg/dL A fasting glucose from 100-125 mg/dl is considered impaired (pre-diabetes). CA 9.2 8.4-10.2 mg/dL AST (GOT) 20 5-31 U/L ALT (GPT) 17 0-31 U/L Triglyceride 73 <150 mg/dL Desirable Triglyceride: less than 150 mg/dL Borderline High Triglyceride 150-199 mg/dL High Triglyceride: 200-499 mg/dL Very High Triglyceride: greater than or equal to 5OO mg/dL Cholesterol 181 <200 mg/dL Desirable Cholesterol: less than 200 mg/dL Borderline High Cholesterol: 200-239 mg/dL High Cholesterol: greater than 239 mg/dL LDL Calculated 111 H <100 mg/dL Desirable LDL: less than 100 mg/dL Near Optimal/Above Optimal LDL: 110-129 mg/dL Borderline High LDL: 130-159 mg/dL High LDL: 160-189 mg/dL Very High LDL: greater than or equal to 190 mg/dL HDL 56 >40 mg/dL Desirable HDL: greater than 40 mg/dL Note: This HDL assay may give artificially low results in patients with liver disease. Vit D 25-OH Tot 42.2 >30 ng/mL Health Based Reference Values* < 20 ng/mL Deficient 20-30 ng/mL Insufficient > 30 ng/mL Sufficient *Breana HARRIS. N Engl J Med. 2007;[id number]:[id number] Care must be taken in interpreting Vitamin D results from different laboratories and methodologies. Published data demonstrated that results from patients undergoing hemodialysis may show a negative bias when tested with various automated 25-OH vitamin D assays when compared to LC-MS/MS. When testing samples from patients whose predominant form of Vitamin D is Vitamin D2, such as patients receiving Vitamin D2 supplementation, results that are subtherapeutic should be confirmed with another method such as LC-MS/MS. Free T4 1.12 0.71-1.85 ng/dL TSH 3rd Gen. 5.30 H 0.32-4.0 uIU/mL Note: A sustained TSH level above 2.5 uIU/mL may warrant further investigation. TSH 3rd Generation ([facility]) Assessment and Plan Assessment & Plan (1) Annual visit for general adult medical examination with abnormal findings: Code(s): Z00.01 - Encounter for general adult medical examination with abnormal findings Plan: Reviewed recent fasting lab results with patient. Continue with regular dental visit every 6 months and regular eye exams, at least every 2 years. Take adequate calcium in diet and vitamin-D 3 at 2000 IU per cap once a day, in addition to weight-bearing exercises to help maintain good muscle tone and weight control. Instructed to do self-breast exam, and continue to get yearly mammogram, up-to-date with her as cervical cancer screening sees Melody chen, and screening colonoscopy. , last done by Dr. Alvarado in 2021 with removal of 2 tubular adenoma polyps, repeat due again in 2026. She is up-to-date with all her vaccines (2) Dyslipidemia: Code(s): E78.5 - Hyperlipidemia, unspecified Plan: Reviewed recent fasting lipid profile with patient with levels within normal limits . Continue with atorvastatin 10 mg twice a week , in addition to adherence to low-cholesterol diet and regular exercise, at least 30 minutes 3 to 4 times a week. Advised patient to make healthy food choices, eat more fruits, vegetables, whole grains, wild caught fish and low-fat dairy. Limit amount of meat and fried or fatty food products, as well as processed foods and fast foods. Follow-up scheduled with repeat fasting lipid panel in 3 months. (3) Acquired hypothyroidism: Code(s): E03.9 - Hypothyroidism, unspecified Plan: Thyroid levels are within normal limits, continued on levothyroxine 50 mcg daily in a.m. an hour before breakfast (4) Impaired fasting glucose: Code(s): R73.01 - Impaired fasting glucose Plan: Your fasting blood sugars elevated above 100 mg/dL. Impaired glucose metabolism O2 at risk for developing diabetes mellitus type 2, as well as heart attack and stroke later on. Lifestyle changes at just weight loss, healthy eating habits, and regular exercise are important, and can prevent the progression to diabetes (5) Osteopenia of multiple sites: Code(s): M85.89 - Other specified disorders of bone density and structure, multiple sites Plan: Reinforced importance of doing regular weight-bearing exercise, continue taking calcium supplements and vitamin-D supplements repeat another bone density scan next year. Orders: Orders Lipid Panel 01/27/24 E03.9 - Hypothyroidism, unspecified, E78.5 - Hyperlipidemia, unspecified, R73.01 - Impaired fasting glucose Thyroid Stimulating Hormone 01/27/24 E03.9 - Hypothyroidism, unspecified, E78.5 - Hyperlipidemia, unspecified, R73.01 - Impaired fasting glucose Glucose Fasting 01/27/24 E03.9 - Hypothyroidism, unspecified, E78.5 - Hyperlipidemia, unspecified, R73.01 - Impaired fasting glucose Aspartate Amino Transferase 01/27/24 E03.9 - Hypothyroidism, unspecified, E78.5 - Hyperlipidemia, unspecified, R73.01 - Impaired fasting glucose Hemoglobin A1c 01/27/24 E03.9 - Hypothyroidism, unspecified, E78.5 - Hyperlipidemia, unspecified, R73.01 - Impaired fasting glucose Free T4 (Free Thyroxine) 01/27/24 E03.9 - Hypothyroidism, unspecified, E78.5 - Hyperlipidemia, unspecified, R73.01 - Impaired fasting glucose Alanine Aminotransferase 01/27/24 E03.9 - Hypothyroidism, unspecified, E78.5 - Hyperlipidemia, unspecified, R73.01 - Impaired fasting glucose Coding Level of Care Code Est Pt Prev Care 40-64y(00258) Diagnoses Annual visit for general adult medical examination with abnormal findings Z00.01 Dyslipidemia E78.5 Acquired hypothyroidism E03.9 Impaired fasting glucose R73.01 Osteopenia of multiple sites M85.89 Additional Codes ALEXX-7 Assessment Billing - ALEXX-7 Assessment Tool: ALEXX-7 Assessment [id number] ([id number])
== END 2023-11-07 11:01 | disposition home or self-care (01) ==
PROVIDERS: PCP Internal Medicine; Visit Provider Internal Medicine
DX: Z00.00 Encounter for general adult medical examination without abnormal findings (principal); E78.5 Hyperlipidemia, unspecified; E03.9 Hypothyroidism, unspecified; R73.01 Impaired fasting glucose; M85.89 Other specified disorders of bone density and structure, multiple sites
CPT/HCPCS: 99396

== ENCOUNTER 2024-01-30 07:49 | Outpatient (REF) | payer MEDICARE, OTHER, SELFPAY ==
[2024-01-30 10:31] LABS: Estimated Average Glucose 111 mg/dL; Hemoglobin A1c % 5.5 % (<6.0)
[2024-01-30 11:19] LABS: Alanine Aminotransferase 16 U/L (0-31); Aspartate Amino Transferase 19 U/L (5-31); Cholesterol 177 mg/dL (<200); Free T4 (Free Thyroxine) 0.98 ng/dL (0.71-1.85); Glucose Fasting 107 mg/dL (60-99); HDL Cholesterol 55 mg/dL (>40); LDL Cholesterol Calculated 107 mg/dL (<100); Thyroid Stimulating Hormone 4.35 uIU/mL (0.32-4.0); Triglycerides 79 mg/dL (<150)
== END 2024-01-30 07:50 | disposition home or self-care (01) ==
LOC: HO.HMGCLDS 07:49
PROVIDERS: PCP Internal Medicine; Visit Provider Internal Medicine
DX: R73.01 Impaired fasting glucose (principal); E03.9 Hypothyroidism, unspecified; E78.5 Hyperlipidemia, unspecified
CPT/HCPCS: 36415; 80061; 82947; 83036; 84439; 84443; 84450; 84460

== ENCOUNTER 2024-02-09 08:09 | Outpatient (AMB) | payer MEDICARE, OTHER, SELFPAY ==
--- NOTE | 2024-02-09 07:57 | MHC.PC.OV ---
Intake Visit Reasons: 3 mo. f/u Andriod [phone] Intake Note: Pt is having a telehealth for 3mo. Allergies No Known Allergies [No Known Allergies*] Allergy (Verified 02/09/24 08:14) Medication List - Last Reconciled 02/09/24 by Savita Butterfield MD atorvastatin 10 mg PO 2XW clonazepam 0.5 mg PO BID PRN levothyroxine 50 mcg PO QAM Tobacco use date assessed: 02/09/24 Dental Screening Dental Screen Date: 02/09/24 Did you have a dental visit in the last 12 months?: Yes Did you have a dental problem in the last 6 months where you did not have access to dental care?: Yes Was dental information given to patient?: Patient has dentist HPI 3 mo. f/u Andriod [phone] HPI Details Telehealth visit made with 63-year-old lady here today for follow-up on her hypothyroidism and lipids. She has been compliant with taking her medications, currently on atorvastatin 10 mg taken 1 tablet 2 times a week, and levothyroxine 50 mcg taken once a day in a.m.. Has been compliant with diet, stays active exercises regularly. No complaints at present time [facility] Medical History Impaired fasting glucose Anxiety with flying Hx of malignant melanoma Osteopenia of multiple sites Malignant melanoma of chest wall History of mammogram History of Papanicolaou smear of cervix Tubular adenoma of colon Acquired hypothyroidism Postmenopausal Dyslipidemia Surgical History H/O melanoma excision History of lipoma History of colonoscopy Family History Father HTN (hypertension) Hyperlipidemia Sepsis Mother Medical history non-contributory Brother No problems noted. Brother No problems noted. Sister No problems noted. Son No problems noted. Daughter No problems noted. Social History Housing: House Alcohol intake: current Alcohol intake frequency: does not drink Patient Tobacco Use Status: Never used Tobacco e-Cigarette/Vaping Use: Never Used Second Hand Smoke Exposure: No Current occupational status: retired Cognitive needs: No Hearing needs: No Vision needs: Yes Questionnaire Thrive Questionnaire Date Thrive assessed: 11/07/23 ALEXX-7 AMB Questionnaire ALEXX-7 Date ALEXX - 7 assessed: 11/07/23 Source: Developed by Drs. Medhat Catherine, Ofelia Bustos, Ezequiel Crow and colleagues, with an educational pepper from [employer]. Review of Systems Const Denies body aches, Denies fatigue, Denies fever(s), Denies headache(s) and Denies weakness Eyes Details: sees Dr Lucio in [place] Denies change in vision, Denies eye discharge and Denies itchy eyes ENT Denies dizziness, Denies headache(s), Denies nasal congestion, Denies nasal discharge and Denies sore throat Card Denies chest pain, Denies lightheadedness, Denies palpitations and Denies dyspnea Resp Denies chest congestion, Denies cough, Denies dyspnea and Denies wheezing GI Denies abdominal pain, Denies change in bowel habits and Denies heartburn Details: Sees Melody Tinajero for her routine Pap and pelvic exam, up-to-date Denies urinary frequency, Denies dysuria and Denies urinary urgency Musc Denies back pain, Denies myalgias, Denies arthralgias and Denies joint swelling Skin/Breast Details: Sees her sales office coordinator once a year Denies lesions and Denies rash Neuro Denies behavioral changes, Denies dizziness, Denies headache(s) and Denies weakness Psych Denies anxiety, Denies behavioral changes, Denies change in appetite and Denies depression Endo Denies fatigue, Denies polydipsia, Denies polyuria and Denies palpitations [place]/Lymph Denies easy bruising Aller/Immun Denies itchy eyes, Denies seasonal rhinorrhea and Denies wheezing Physical exam (Primary Care) Tobacco/Smoking Status: Tobacco use Status Tobacco use date assessed 02/09/24 02/09/24 07:59 Patient Tobacco Use Status Never used Tobacco 02/09/24 07:59 e-Cigarette/Vaping Use Never Used 02/09/24 07:59 Thrive Assessment: Date of Thrive Assessment Date Thrive assessed 11/07/23 02/09/24 07:59 Telehealth Telehealth Telehealth Platform: [facility] Location of provider rendering services: practice address Location of patient: address on file Patient Identification confirmed using: Name, : Yes Telehealth method: video Patient verbally consented to treatment: Yes Patient verbally consented to billing insurance company: Yes Patient informed of any privacy concerns related to visit: Yes Minutes spent on Phone/Video with Pt.: 15 Results Reviewed Results Reviewed: Laboratory Tests 01/30/24 08:18 Estimat Average Glucose 111 Hemoglobin A1c % 5.5 Name: Liseth Rebolledo Age/Sex: 63/F : 1960 Unit#: [id number] Attend Dr: Savita Butterfield MD Re01/30/24 Status: DEP REF Location: [facility] Disch: SPEC : [id number] MARY: 01/30/24 STATUS: COMP REQ : [id number] RECD: 01/30/24-[address]: Savita Butterfield MD COMP: 01/30/24 ENTERED: 01/30/[address] [facility] DR: ORDERED: Glu Fasting, AST, ALT, Lipid Panel, Free T4, TSH Test Result Flag Reference FBS 107 H 60-99 mg/dL A fasting glucose from 100-125 mg/dl is considered impaired (pre-diabetes). AST (GOT) 19 5-31 U/L ALT (GPT) 16 0-31 U/L Triglyceride 79 <150 mg/dL Desirable Triglyceride: less than 150 mg/dL Borderline High Triglyceride 150-199 mg/dL High Triglyceride: 200-499 mg/dL Very High Triglyceride: greater than or equal to 5OO mg/dL Cholesterol 177 <200 mg/dL Desirable Cholesterol: less than 200 mg/dL Borderline High Cholesterol: 200-239 mg/dL High Cholesterol: greater than 239 mg/dL LDL Calculated 107 H <100 mg/dL Desirable LDL: less than 100 mg/dL Near Optimal/Above Optimal LDL: 110-129 mg/dL Borderline High LDL: 130-159 mg/dL High LDL: 160-189 mg/dL Very High LDL: greater than or equal to 190 mg/dL HDL 55 >40 mg/dL Desirable HDL: greater than 40 mg/dL Note: This HDL assay may give artificially low results in patients with liver disease. Free T4 0.98 0.71-1.85 ng/dL TSH 3rd Gen. 4.35 H 0.32-4.0 uIU/mL Note: A sustained TSH level above 2.5 uIU/mL may warrant further investigation. TSH 3rd Generation ([facility]) Assessment and Plan Assessment & Plan (1) Impaired fasting glucose: Code(s): R73.01 - Impaired fasting glucose Plan: Your previous fasting blood sugars were elevated above 100 mg/dL. Impaired glucose metabolism increases the risk for developing diabetes mellitus type 2, as well as heart attack and stroke later on. Continue with healthy eating habits, and regular exercise which are important to prevent the progression to diabetes (2) Acquired hypothyroidism: Code(s): E03.9 - Hypothyroidism, unspecified Plan: TSH slightly elevated but lower than last check, free T4 within normal limits, will continue on current dose of levothyroxine 50 mcg daily in a.m., patient currently feels well on present dose (3) Dyslipidemia: Code(s): E78.5 - Hyperlipidemia, unspecified Plan: Reviewed recent fasting lipid profile with patient with levels within normal limits . Continue atorvastatin 10 mg per tablet taken 1 tablet twice a week , in addition to adherence to low-cholesterol diet and regular exercise, at least 30 minutes 3 to 4 times a week. Advised patient to make healthy food choices, eat more fruits, vegetables, whole grains, wild caught fish and low-fat dairy. Limit amount of meat and fried or fatty food products, as well as processed foods and fast foods. Follow-up scheduled with repeat fasting lipid panel in 6 months. Orders: Orders Hemoglobin A1c 07/24/24 E03.9 - Hypothyroidism, unspecified, E78.5 - Hyperlipidemia, unspecified, M85.89 - Other specified disorders of bone density and structure, multiple sites, R73.01 - Impaired fasting glucose, Z78.0 - Asymptomatic menopausal state Aspartate Amino Transferase 07/24/24 E03.9 - Hypothyroidism, unspecified, E78.5 - Hyperlipidemia, unspecified, M85.89 - Other specified disorders of bone density and structure, multiple sites, R73.01 - Impaired fasting glucose, Z78.0 - Asymptomatic menopausal state Basic Metabolic Panel Fasting 07/24/24 E03.9 - Hypothyroidism, unspecified, E78.5 - Hyperlipidemia, unspecified, M85.89 - Other specified disorders of bone density and structure, multiple sites, R73.01 - Impaired fasting glucose, Z78.0 - Asymptomatic menopausal state Lipid Panel 07/24/24 E03.9 - Hypothyroidism, unspecified, E78.5 - Hyperlipidemia, unspecified, M85.89 - Other specified disorders of bone density and structure, multiple sites, R73.01 - Impaired fasting glucose, Z78.0 - Asymptomatic menopausal state Thyroid Stimulating Hormone 07/24/24 E03.9 - Hypothyroidism, unspecified, E78.5 - Hyperlipidemia, unspecified, M85.89 - Other specified disorders of bone density and structure, multiple sites, R73.01 - Impaired fasting glucose, Z78.0 - Asymptomatic menopausal state Alanine Aminotransferase 07/24/24 E03.9 - Hypothyroidism, unspecified, E78.5 - Hyperlipidemia, unspecified, M85.89 - Other specified disorders of bone density and structure, multiple sites, R73.01 - Impaired fasting glucose, Z78.0 - Asymptomatic menopausal state Vitamin D 25-OH Total 07/24/24 E03.9 - Hypothyroidism, unspecified, E78.5 - Hyperlipidemia, unspecified, M85.89 - Other specified disorders of bone density and structure, multiple sites, R73.01 - Impaired fasting glucose, Z78.0 - Asymptomatic menopausal state Free T4 (Free Thyroxine) 07/24/24 E03.9 - Hypothyroidism, unspecified, E78.5 - Hyperlipidemia, unspecified, M85.89 - Other specified disorders of bone density and structure, multiple sites, R73.01 - Impaired fasting glucose, Z78.0 - Asymptomatic menopausal state Medications: Refilled levothyroxine 50 mcg PO QAM 90 tabs 4RF atorvastatin 10 mg PO 2XW 24 tabs 4RF Coding Level of Care Code Tele Est Pt Level 4 (53480) Complex EM visit Add On G2211 Diagnoses Impaired fasting glucose R73.01 Acquired hypothyroidism E03.9 Dyslipidemia E78.5
== END 2024-02-09 09:55 | disposition home or self-care (01) ==
LOC: HO.HMGC 08:09
PROVIDERS: PCP Internal Medicine; Visit Provider Internal Medicine
DX: R73.01 Impaired fasting glucose (principal); E03.9 Hypothyroidism, unspecified; E78.5 Hyperlipidemia, unspecified
CPT/HCPCS: 99214

== ENCOUNTER 2024-05-08 10:35 | Outpatient (REF) | payer MEDICARE, OTHER, SELFPAY ==
--- NOTE | ~2024-05-08 | MM_ITS ---
EXAMINATION: MM SCREENING DIGITAL BREAST TOMOSYNTHESIS, BILATERAL CLINICAL INFORMATION: Screening. Asymptomatic. COMPARISON: Mammography: Comparison is made with available priors TECHNIQUE: Digital breast mammography with tomosynthesis is performed in both the craniocaudal and mediolateral oblique views along with computer-aided detection (CAD). FINDINGS: There are scattered areas of fibroglandular density (ACR BI-RADS breast composition Category b). Right upper outer quadrant marker clip. There are no significant masses, abnormal calcifications, or other abnormalities. MM/MM tomosynthesis screening BI IMPRESSION: No mammographic evidence of malignancy. ASSESSMENT: BI-RADS BI-RADS 2 - Benign Findings RECOMMENDATION: Routine annual mammography screening. 1 year F/U This examination should not preclude the clinical evaluation of a suspicious palpable abnormality. This patient's information was entered into a reminder system with a target due date for their next mammogram. Electronically signed by: Jennifer Shelton DO 05/15/2024 08:06 AM EDT
== END 2024-05-08 10:36 | disposition home or self-care (01) ==
LOC: HO.MAMMO 10:35
PROVIDERS: PCP Internal Medicine; Referring Provider Nurse Practitioner Adult Health; Visit Provider Internal Medicine
DX: Z12.31 Encounter for screening mammogram for malignant neoplasm of breast (principal)
CPT/HCPCS: 77063; 77067

== ENCOUNTER → 2024-05-08 10:45 | Outpatient (BNV) | payer MEDICARE, OTHER, SELFPAY | PROVIDERS: PCP Internal Medicine; Referring Provider Nurse Practitioner Adult Health; Visit Provider Internal Medicine | DX: Z12.31 Encounter for screening mammogram for malignant neoplasm of breast (principal) | CPT/HCPCS: 77063; 77067 ==

== ENCOUNTER 2024-08-05 08:16 | Outpatient (REF) | payer MEDICARE, OTHER, SELFPAY ==
[2024-08-05 10:13] LABS: Estimated Average Glucose 111 mg/dL; Hemoglobin A1C 132.8028 umol/L; Hemoglobin A1c % 5.5 % (<6.0); Total Hemoglobin (HGBA1C) 3669.9185 umol/L
[2024-08-05 10:46] LABS: Alanine Aminotransferase 17 U/L (0-31); Anion Gap 9 (12-20); Aspartate Amino Transferase 23 U/L (5-31); Blood Urea Nitrogen 21 mg/dL (9-16); Calcium 9.4 mg/dL (8.4-10.2); Carbon Dioxide 29 mmol/L (22-29); Chloride 107 mmol/L (96-108); Cholesterol 180 mg/dL (<200); Estimated Glomerular Filt Rate > 60; Free T4 (Free Thyroxine) 1.14 ng/dL (0.71-1.85); Glucose Fasting 103 mg/dL (60-99); HDL Cholesterol 57 mg/dL (>40); LDL Cholesterol Calculated 108 mg/dL (<100); Potassium 4.7 mmol/L (3.3-5.1); Sodium 140 mmol/L (135-145); Thyroid Stimulating Hormone 4.02 uIU/mL (0.32-4.0); Triglycerides 77 mg/dL (<150); Vitamin D 25-OH Total 60.2 ng/mL (>30)
== END 2024-08-05 08:17 | disposition home or self-care (01) ==
LOC: HO.HMGCLDS 08:16
PROVIDERS: PCP Internal Medicine; Visit Provider Internal Medicine
DX: R73.01 Impaired fasting glucose (principal); E03.9 Hypothyroidism, unspecified; E78.5 Hyperlipidemia, unspecified; Z78.0 Asymptomatic menopausal state; M85.89 Other specified disorders of bone density and structure, multiple sites
CPT/HCPCS: 36415; 80048; 80061; 82306; 83036; 84439; 84443; 84450; 84460

== ENCOUNTER 2024-11-01 09:49 | Outpatient (REF) | payer MEDICARE, OTHER, SELFPAY ==
--- OUTSIDE RECORDS SUMMARY | 2024-11-01 10:26 | XMS_ITS | Clinical Summary ---
Author Organization [facility] Address [address] [place] [id number] Phone Care Team Providers Care Juvenile Correctional Officer Name Role Phone Savita Butterfield MD Primary Care Provider [phone]- [phone] Allergies No known active allergies Medications Medication Sig Dispensed Refills Start Date End Date Status CALCIUM CARBONATE (CALCIUM 500 ORAL) Active um-mok-vupbs acid-lutein (ESSENTIAL WOMAN 50+) 0.4-250 mg-mcg Tab Active ergocalciferol (VITAMIN D2) 50,000 unit capsule 1 capsule Active levothyroxine (SYNTHROID, LEVOTHROID) 50 MCG tablet Take 50 mcg by mouth every morning. Active Active Problems Problem Noted Date Diagnosed Date Ganglion cyst of joint of finger of left hand Changing nevus 07/27/2017 Lipoma of lower extremity 07/27/2017 Family History Relation Status Comments Father Mother Social History Tobacco Use Types Packs/Day Years Used Date Smoking Tobacco: Never Smokeless Tobacco: Never Alcohol Use Standard Drinks/Week Comments No 0 (1 standard drink = 0.6 oz pur e alcohol) Education Answer Date Recorded Are you interested in more education? Not on kia e 11/18/2022 Are you concerned about learning? Not on file 11/18/2022 No 11/18/2022 No 11/18/2022 Digital Access Answer Date Recorded No 12/17/2022 No 12/17/2022 No 12/17/2022 Reliable internet access at home? Not on file 12/17/2022 Device with a working camera? Not on file Sex and Gender Information Value Date Recorded Sex Assigned at Not on file Gender Identity Not on file Sexual Orientation Not on file Last Filed Vital Signs Vital Sign Reading Time Taken Comments Blood Pressure 135/79 12/20/2017 11:10 AM EDT Pulse 90 12/20/2017 11:10 AM EDT Temperature - - Respiratory Rate - - Oxygen Saturation - - Inhaled Oxygen Concentration - - Weight 62.6 kg (138 lb) 12/20/2017 11:10 AM EDT Height 163.8 cm (5' 4.5 ) 06/09/2014 9:01 AM EST Body Mass Index 23.32 06/09/2014 9:01 AM EST Plan of Treatment Health Maintenance Due Date Last Done Comments LIPID PANEL 1960 TSH LEVEL 1960 DEPRESSION SCREENING 1971 HEPATITIS B SCREENING 1977 HEPATITIS C SCREENING 1977 HIV ONE-TIME SCREENING (18-6 5 YEARS) 1977 MAMMOGRAM 1999 COLOGUARD 02/18/2004 COLONOSCOPY 02/18/2004 COLORECTAL CANCER SCREENING 02/18/2004 FIT TEST 02/18/2004 FOBT 02/18/2004 SIGMOIDOSCOPY 02/18/2004 VIRTUAL COLONOSCOPY 02/18/2004 PNEUMOCOCCAL VACCINES (50+ years) (1 of 1 - PCV) 2009 OSTEOPOROSIS SCREENING INITI AL (ONE-TIME) 02/18/2024 INFLUENZA VACCINE (#1) 2024 , 09/06/2019, 05/17/2018 COVID-19 VACCINE (2 - 2023-2 5 season) 2024 10/22/2020 Adult Td,Tdap Booster 09/21/2030 09/21/2020 RSV VACCINE (1 - 1-dose 75+ series) 2034 SMOKING STATUS SCREENING (On ce After 26 Yrs) Completed 03/14/2018 ZOSTER VACCINES Completed 08/11/2020, 06/08/2020 HEPATITIS A VACCINES Aged Out No long er eligible based on patient's age to complete this topic HEPATITIS B VACCINES Aged Out No long er eligible based on patient's age to complete this topic HIB VACCINES Aged Out No longer eligi ble based on patient's age to complete this topic MENINGOCOCCAL VACCINES (ACWY) Aged Out No longer eligible based on patient's age to complete this topic Medical Devices Not on file Insurance Payer Benefit Plan / Group Subscriber ID Effective Dates Phone Address [facility] HMO [id number] 2020-Present [address] [place] [address] O Care Teams Juvenile Correctional Officer Relationship Specialty Start Date End Date Savita Butterfield MD [address] [place] [id number] PCP - General 05/11/17 Additional Source Comments The information contained in this document represents components of the legal health record. It is not the complete legal health record.[facility]
--- OUTSIDE RECORDS SUMMARY | 2024-11-01 10:26 | XMS_ITS | Patient Health Record ---
Author Organization [facility] Address [address] [place] [address] Care Team Providers Care Self Propelled Mining Machine Operator Name Role Phone Scout ARMENTA, Savita Primary Care Provider Medhat Patel Unavailable [phone] Reason For Referral No Information Medications Medication SIG (Take, Route, Frequency, Duration) Notes Start Date End Date Status Vitamin D3 25 MCG (1000 UT) as directed Orally Once a day Active Spectravite - as directed Orally Active Atorvastatin Calcium 10 MG 1 tablet Oral ly twice a week Active Multivitamin Active Levothyroxine Sodium 50 MCG 1 tablet on an empty stomach in the morning Orally Once a day Active Calcium 600 MG 1 tablet with meals Orally Once a day Active Immunizations Vaccine Route Administration Date Status Comme nts Influenza Unknown 03/24/2021 Administered Problems Problem Type SNOMED Code ICD Code Onset Dates Problem Status W/U Status Risk Notes Problem [id number] Encounter for screening for malignant neoplasm of colon (Z12.11) Active confirmed Problem 097111802 History of adenomatous polyp of colon (Z86.010) Active confirmed Problem Screening for malignant neoplasm of rectum (205680517) Encounter for screening for malignant neoplasm of rectum (Z12.12) Active confirmed Problem 588171772 Preprocedural examination (Z01.818) Active confirmed Problem Diverticulosis of colon (224881244) Diverticulosis of colon (K57.30) Active confirmed Plan Of Treatment Future Test Test Name Order Date COLONOSCOPY 12/20/2011 COLONOSCOPY 11/09/2016 COLONOSCOPY 11/11/2021 Insurance Providers Payer Name Payer Address Payer Phone Subscriber Number Group Number Insured Name Patient Relationship to Insured Coverage Start Date Coverage End Date [facility] [address] [place] [phone] [id number] JORGE MARQUES Self - patient is the insured Medical (General) History Medical History History ICD Code Denies [place],DM,CVA,Lung disease,renal dise ase Hypothyroidism Colonoscopy in 12/2011--small tubular lizette nomas, diverticulosis Colonoscopy in 12/2016 with a small tubul ar adenoma Surgical History Surgery Date(Month/Year) Benign breast biopsy Stage 1 Melanoma removed from chest wall 01/2021
[2024-11-01 13:55] LABS: Alanine Aminotransferase 19 U/L (0-31); Anion Gap 10 (12-20); Aspartate Amino Transferase 27 U/L (5-31); Blood Urea Nitrogen 14 mg/dL (9-16); Carbon Dioxide 27 mmol/L (22-29); Chloride 103 mmol/L (96-108); Cholesterol 207 mg/dL (<200); Estimated Glomerular Filt Rate > 60; Glucose Fasting 94 mg/dL (60-99); HDL Cholesterol 66 mg/dL (>40); LDL Cholesterol Calculated 128 mg/dL (<100); Sodium 136 mmol/L (135-145); Triglycerides 65 mg/dL (<150)
[2024-11-01 14:17] LABS: Free T4 (Free Thyroxine) 1.18 ng/dL (0.71-1.85); Thyroid Stimulating Hormone 2.74 uIU/mL (0.32-4.0); Vitamin D 25-OH Total 66.8 ng/mL (>30)
== END 2024-11-01 09:50 | disposition home or self-care (01) ==
LOC: HO.HMGCLDS 09:49
PROVIDERS: PCP Internal Medicine; Visit Provider Internal Medicine
DX: R73.01 Impaired fasting glucose (principal); M85.89 Other specified disorders of bone density and structure, multiple sites; E03.9 Hypothyroidism, unspecified; Z78.0 Asymptomatic menopausal state; E78.5 Hyperlipidemia, unspecified
CPT/HCPCS: 36415; 80048; 80061; 82306; 84439; 84443; 84450; 84460

== ENCOUNTER 2024-11-11 12:22 | Outpatient (AMB) | payer MEDICARE, OTHER, SELFPAY ==
--- OUTSIDE RECORDS SUMMARY | 2024-11-11 12:26 | XMS_ITS | Clinical Summary ---
Author Organization [facility] Address [address] [place] [address] Phone Care Team Providers Care Travel Accommodation Inspector Name Role Phone Savita Butterfield MD Primary Care Provider +1- [phone] Allergies No known active allergies Medications Medication Sig Dispensed Refills Start Date End Date Status CALCIUM CARBONATE (CALCIUM 500 ORAL) Active ig-mbz-lvxob acid-lutein (ESSENTIAL WOMAN 50+) 0.4-250 mg-mcg Tab [...] Group Subscriber ID Effective Dates Phone Address [facility] HMO [id number] 2020-Present [address] [place] [address] O Care Teams Travel Accommodation Inspector Relationship Specialty Start Date End Date Savita Butterfield MD [address] [facility] [place] [address] PCP - General 05/11/17 Additional Source Comments The information contained in this document represents components of the legal health record. It is not the complete legal health record.[facility]
--- OUTSIDE RECORDS SUMMARY | 2024-11-11 12:26 | XMS_ITS | Patient Health Record ---
Author Organization [facility] Address [address] [place] [address] Care Team Providers Care Chemical Project Engineer Name Role Phone Scout ARMENTA, Savita Primary Care Provider Medhat Patel Unavailable [phone] Reason For Referral No Information Medications Medication [...] Problem Status W/U Status Risk Notes Problem [id number] Encounter for screening for malignant neoplasm of colon (Z12.11) Active confirmed Problem 682439073 History of adenomatous polyp of colon (Z86.010) Active confirmed Problem Screening for malignant neoplasm of rectum (024941168) Encounter for screening for malignant neoplasm of rectum (Z12.12) Active confirmed Problem 865787559 Preprocedural examination (Z01.818) Active confirmed Problem Diverticulosis of colon (681491621) Diverticulosis of colon (K57.30) Active confirmed Plan Of Treatment Future Test Test Name Order Date COLONOSCOPY 12/20/2011 COLONOSCOPY 11/09/2016 COLONOSCOPY 11/11/2021 Insurance Providers Payer Name Payer Address Payer Phone Subscriber Number Group Number Insured Name Patient Relationship to Insured Coverage Start Date Coverage End Date [facility] [address] [place] [address] [phone] [id number] JORGE MARQUES Self - patient is the insured Medical (General) History Medical History History ICD Code Denies [place],DM,CVA,Lung disease,renal dise ase Hypothyroidism Colonoscopy in 12/2011--small tubular lizette nomas, diverticulosis Colonoscopy in 12/2016 with a small tubul ar adenoma Surgical History Surgery Date(Month/Year) Benign breast biopsy Stage 1 Melanoma removed from chest wall 01/2021
--- NOTE | 2024-11-11 12:38 | MHC.PC.OV ---
Vital Signs 11/11/24 12:40 Height 5 ft 4.5 in Weight 132 lb BMI 22.3 BP 138/82 Blood Pressure Location Lt brachial Position Sitting Respiration 16 Pulse 98 Pulse Source Pulse Oximeter Temp 98.2 F Temp Source Oral Pulse Oximetry (%) 98 Oxygen Delivery Method Room Air Intake Visit Reasons: Annual PE Allergies No Known Allergies [No Known Allergies*] Allergy (Verified 11/11/24 12:51) Medication List - Last Reconciled 11/11/24 by Savita Butterfield MD atorvastatin 10 mg PO 2XW clonazepam 0.5 mg PO BID PRN fluocinonide 0.05% topical hydrocortisone 2.5% appl topical levothyroxine 50 mcg PO QAM Tobacco use date assessed: 11/11/24 Fall risk assessment: No Falls in past year Last assessed Fall Risk: 11/11/24 Dental Screening Dental Screen Date: 11/11/24 Did you have a dental visit in the last 12 months?: Yes Did you have a dental problem in the last 6 months where you did not have access to dental care?: Yes Was dental information given to patient?: Patient has dentist HPI Annual PE HPI Details 64-year-old lady with history of dyslipidemia, hypothyroidism, adenomatous polyps of colon removed on last colonoscopy in 2021, here today for her physical exam. She is up-to-date with her screening mammogram done last April 2024, has an appointment already scheduled for May 12 2025 for a repeat mammogram.. Her last bone density scan was done in 2022 which showed presence of osteopenia in multiple sites, no history of fractures. Currently followed by dermatology, has history of malignant melanoma of anterior chest. COUNT INCLUDES [facility] Medical History Impaired fasting glucose Anxiety with flying Hx of malignant melanoma Osteopenia of multiple sites Malignant melanoma of chest wall History of mammogram History of Papanicolaou smear of cervix Tubular adenoma of colon Acquired hypothyroidism Postmenopausal Dyslipidemia Surgical History H/O melanoma excision History of lipoma History of colonoscopy Family History Father HTN (hypertension) Hyperlipidemia Sepsis Mother Medical history non-contributory Brother No problems noted. Brother No problems noted. Sister No problems noted. Son No problems noted. Daughter No problems noted. Social History Housing: House Alcohol intake: current Alcohol intake frequency: does not drink Patient Tobacco Use Status: Never used Tobacco e-Cigarette/Vaping Use: Never Used Second Hand Smoke Exposure: No Current occupational status: retired Cognitive needs: No Hearing needs: No Vision needs: Yes Questionnaire PHQ-9 Over the last 2 weeks, how often have you been bothered by any of the following problems? 1. Little interest or pleasure in doing things: not at all 2. Feeling down, depressed, or hopeless: not at all 3. Trouble falling or staying asleep, or sleeping too much: not at all 4. Feeling tired or having little energy: not at all 5. Poor appetite or overeating: not at all 6. Feeling bad about yourself - or that you are a failure or have let yourself or your family down: not at all 7. Trouble concentrating on things, such as reading the newspaper or watching television: not at all 8. Moving or speaking so slowly that other people could have noticed. Or the opposite - being so fidgety or restless that you have been moving around a lot more than usual: not at all 9. Thoughts that you would be better off or of hurting yourself in some way: not at all Total score: 0 Depression Screening Interpretation: Negative Depression Screening Done: Yes 46355 - PHQ-9 Billing: Yes Source: Developed by Drs. Medhat Catherine, Ofelia Bustos, Ezequiel Crow and colleagues, with an educational pepper from [employer]. Thrive Questionnaire Date Thrive assessed: 11/11/24 I am a: Patient What is your living situation today?: I have a steady place to live Within the past 12 months, did the food you bought not last and you didn't have the money to get more?: Never true Within the past 12 months, did you worry whether your food would run out before you got money to buy more?: Never true Do you have trouble paying for medicines?: No Do you have trouble getting transportation to medical appointments?: No Do you have trouble paying your heating and electricity bill?: No Do you have trouble taking care of your child, family member or friend?: No Do you have trouble with day-to-day activities such as bathing, preparing meals, shopping, managing finances, etc.?: No Are you currently unemployed and looking for a job?: No Are you interested in more education?: No THRIVE Score: 0 AUDIT C Alcohol Use Questionnaire (AUDIT-C) 1. How often do you have a drink containing alcohol?: Never Total Score: 0 ALEXX-7 AMB Questionnaire ALEXX-7 Date ALEXX - 7 assessed: 11/11/24 Feeling nervous, anxious, or on edge: 0 = Not at all Not being able to stop or control worryin = Not at all Worrying too much about different things: 0 = Not at all Trouble relaxin = Not at all Being so restless that it is hard to sit still: 0 = Not at all Becoming easily annoyed or irritable: 0 = Not at all Feeling afraid as if something awful might happen: 0 = Not at all Total ALEXX-7 score (0-4 normal; 5-9 mild; 10-14 moderate; 15-21 severe): 0 Source: Developed by Drs. Medhat Catherien, Ofelia Bustos, Ezequiel Crow and colleagues, with an educational pepper from [employer]. ALEXX-7 Assessment Billing ALEXX-7 Assessment Tool: ALEXX-7 Assessment 25520 Review of Systems Const Denies body aches, Denies fatigue, Denies fever(s), Denies headache(s) and Denies weakness Eyes Details: sees [facility] Lucio in [facility] Denies change in vision, Denies eye discharge and Denies itchy eyes ENT Denies dizziness, Denies headache(s), Denies nasal congestion, Denies nasal discharge and Denies sore throat Card Denies chest pain, Denies lightheadedness, Denies palpitations and Denies dyspnea Resp Denies chest congestion, Denies cough, Denies dyspnea and Denies wheezing GI Denies abdominal pain, Denies change in bowel habits and Denies heartburn Details: Sees Melody Tinajero for her routine Pap and pelvic exam, up-to-date Denies urinary frequency, Denies dysuria and Denies urinary urgency Musc Denies back pain, Denies myalgias, Denies arthralgias and Denies joint swelling Skin/Breast Details: Sees her transfer station operator once a year Denies lesions and Denies rash Neuro Denies behavioral changes, Denies dizziness, Denies headache(s) and Denies weakness Psych Denies anxiety, Denies behavioral changes, Denies change in appetite and Denies depression Endo Denies fatigue, Denies polydipsia, Denies polyuria and Denies palpitations Merritt/Lymph Denies easy bruising Aller/Immun Denies itchy eyes, Denies seasonal rhinorrhea and Denies wheezing Physical exam (Primary Care) Vital Signs: Last Vital Signs Temp 98.2 F 11/11/24 12:40 Pulse 98 11/11/24 12:40 Resp 16 11/11/24 12:40 BP 138/82 11/11/24 12:40 Pulse Ox 98 11/11/24 12:40 Oxygen Delivery Method Room Air 11/11/24 12:40 BMI result Body Mass Index 22.3 Tobacco/Smoking Status: Tobacco use Status Tobacco use date assessed 11/11/24 11/11/24 12:44 Patient Tobacco Use Status Never used Tobacco 11/11/24 12:39 e-Cigarette/Vaping Use Never Used 11/11/24 12:39 PHQ-9: PHQ-9 Score PHQ-9: Total score 0 11/11/24 15:09 Depression Screening Interpretation: Negative Thrive Assessment: Date of Thrive Assessment Date Thrive assessed 11/11/24 11/11/24 12:45 Const Orientation/consciousness: patient oriented x3 HENMT Head: Yes normocephalic and Yes atraumatic Ears: hearing grossly normal bilaterally, TM's normal bilaterally and EAC's normal General nose exam: Normal external nose present and No nasal discharge present Mouth: Normal oral and palatal mucosa present and moist mucous membranes Eyes General: appearance normal, both eyes and all related structures (sees Dr Lucio regularly for her eye exam) Neck Neck: Yes full ROM, Yes no lymphadenopathy, Yes no meningeal signs and Yes supple Thyroid: Thyroid normal Chest Chest palpation & inspection: normal inspection of the chest Breast/axilla palpation: normal palpation of the breasts Resp Effort & Inspection: normal respiratory effort Auscultation: clear to auscultation bilaterally Cardio Other: S1-S2 present regular rate Palpation: normal PMI Bruits: no abdominal aortic bruits GI Inspection: Yes normal to inspection Palpation (GI): No Abdominal aortic bruit present, Soft to palpation, nontender, no guarding and no masses Auscultation: normal bowel sounds General: Yes no CVA tenderness and Yes deferred (Goes to her own OBGYN) Back/Spine/Pelvis Back: no CVA tenderness and No back tenderness Skin General skin exam: no rashes or lesions noted (some freckles on upper back) Neuro General: patient oriented x3, gait normal, tone normal, moves all extremities, Normal light touch and pain sensation, no meningeal signs, no focal motor deficits and CN's II-XI intact bilaterally Gait exam (Neuro): Normal gait present Extrem General: Yes full ROM, Yes no joint enlargement, Yes no pedal edema, Yes no calf tenderness and Yes normal gait Psych Appearance: grossly normal Mental Status: mental status grossly normal Speech and movement: Normal speech and movement present Affect: normal affect Attitude: cooperative Thought process: Normal thought process present Thought content: Normal thought content present Results Reviewed Results Reviewed: Name: Liseth Rebolledo Age/Sex: 64/F : 1960 Unit#: [id number] Attend Dr: Savita Butterfield MD Re11/01/24 Status: DEP REF Location: [facility] Disch: SPEC : [id number] MARY: 11/01/24 STATUS: COMP REQ : [id number] RECD: 11/01/[address]: Savita Butterfield MD COMP: 11/01/24 ENTERED: 11/01/24-[address] [facility] [address]: ORDERED: Met Prof Fast, AST, ALT, Lipid Panel, Vitamin D 25-OH, Free T4, TSH Test Result Flag Reference Sodium 136 135-145 mmol/L Potassium 4.0 3.3-5.1 mmol/L CL 103 96-108 mmol/L CO2 27 22-29 mmol/L Gap 10 L 12-20 BUN 14 9-16 mg/dL Creat 0.68 0.5-1.4 mg/dL eGFR > 60 Chronic Kidney Disease: Estimated GFR < 60 mL/min/1.73m2 Severe Kidney Disease: Estimated GFR < 15 mL/min/1.73m2 FBS 94 60-99 mg/dL CA 9.0 8.4-10.2 mg/dL AST (GOT) 27 5-31 U/L ALT (GPT) 19 0-31 U/L Triglyceride 65 <150 mg/dL Desirable Triglyceride: less than 150 mg/dL Borderline High Triglyceride 150-199 mg/dL High Triglyceride: 200-499 mg/dL Very High Triglyceride: greater than or equal to 5OO mg/dL Cholesterol 207 H <200 mg/dL Desirable Cholesterol: less than 200 mg/dL Borderline High Cholesterol: 200-239 mg/dL High Cholesterol: greater than 239 mg/dL LDL Calculated 128 H <100 mg/dL Desirable LDL: less than 100 mg/dL Near Optimal/Above Optimal LDL: 110-129 mg/dL Borderline High LDL: 130-159 mg/dL High LDL: 160-189 mg/dL Very High LDL: greater than or equal to 190 mg/dL HDL 66 >40 mg/dL Desirable HDL: greater than 40 mg/dL Note: This HDL assay may give artificially low results in patients with liver disease. Vitamin D 25-OH 66.8 >30 ng/mL Health Based Reference Values* < 20 ng/mL Deficient 20-30 ng/mL Insufficient > 30 ng/mL Sufficient *Breana HARRIS. N Engl J Med. 2007;357:266-280 There is no well-established upper level of normal vitamin D levels. Some laboratories use 50 ng/mL as an upper limit of normal. However, toxicity is patient-dependent and may occur at any level. Careful correlation with the patient's presentation is necessary and, if there is concern for vitamin D toxicity, treatment should be considered irrespective of the serum level. Care must be taken in interpreting Vitamin D results from different laboratories and methodologies. Published data demonstrated that results from patients undergoing hemodialysis may show a negative bias when tested with various automated 25-OH vitamin D assays when compared to LC-MS/MS. When testing samples from patients whose predominant form of Vitamin D is Vitamin D2, such as patients receiving Vitamin D2 supplementation, results that are subtherapeutic should be confirmed with another method such as LC-MS/MS. Free T4 1.18 0.71-1.85 ng/dL TSH 3rd Gen. 2.74 0.32-4.0 uIU/mL Note: A sustained TSH level above 2.5 uIU/mL may warrant further investigation. Coding Level of Care Code Est Pt Prev Care >65y(96350) Diagnoses Annual visit for general adult medical examination with abnormal findings Z00. Osteopenia of multiple sites M85.89 Dyslipidemia E78.5 Acquired hypothyroidism E03.9 Impaired fasting glucose R73.01 Additional Codes PHQ-9 - 38002 - PHQ-9 Billing: Yes ([id number]) ALEXX-7 Assessment Billing - ALEXX-7 Assessment Tool: ALEXX-7 Assessment 18591 ([id number]) Assessment & Plan Assessment & Plan (1) Annual visit for general adult medical examination with abnormal findings: Code(s): Z00.01 - Encounter for general adult medical examination with abnormal findings Plan: Results of recent fasting lab discussed with patient. Continue with regular dental visit every 6 months and regular eye exams, at least every 2 years. Take adequate calcium in diet and vitamin-D 3 at 2000 IU per cap once a day, in addition to weight-bearing exercises to help maintain good muscle tone and weight control. Instructed to do self-breast exam, and continue to get yearly mammogram,, ordered a bone density scan to be done later this year together with screening mammogram.. Up-to-date with her screening colonoscopy and all her vaccinations. (2) Osteopenia of multiple sites: Code(s): M85.89 - Other specified disorders of bone density and structure, multiple sites Category: Medical Plan: Repeat bone density scan ordered to be scheduled together with screening mammogram later this year. Continue with doing regular weight-bearing exercise, take adequate calcium from dietary sources and continue taking vitamin-D 3 supplements. (3) Dyslipidemia: Code(s): E78.5 - Hyperlipidemia, unspecified Category: Medical Plan: Reviewed recent fasting lipid profile with patient with LDL cholesterol level slightly elevated as compared to last check but with did normal limits still. . Continue atorvastatin 10 mg 1 tablet taken twice a week , in addition to adherence to low-cholesterol diet and regular exercise, at least 30 minutes 3 to 4 times a week. Advised patient to make healthy food choices, eat more fruits, vegetables, whole grains, wild caught fish and low-fat dairy. Limit amount of meat and fried or fatty food products, as well as processed foods and fast foods. Follow-up scheduled with repeat fasting lipid panel in 6 months. (4) Acquired hypothyroidism: Code(s): E03.9 - Hypothyroidism, unspecified Category: Medical Plan: Latest thyroid levels are within normal limits, continue with current dose of levothyroxine, 50 mcg taken once a day in a.m.. (5) Impaired fasting glucose: Code(s): R73.01 - Impaired fasting glucose Category: Medical Plan: Fasting blood sugar now within normal limits on latest labs done, continue with adherence to healthy eating habits and regular exercise. Orders: Orders Free T4 (Free Thyroxine) 04/23/25 E03.9 - Hypothyroidism, unspecified, E78.5 - Hyperlipidemia, unspecified, M85.89 - Other specified disorders of bone density and structure, multiple sites, R73.01 - Impaired fasting glucose, Z78.0 - Asymptomatic menopausal state Lipid Panel 04/23/25 E03.9 - Hypothyroidism, unspecified, E78.5 - Hyperlipidemia, unspecified, M85.89 - Other specified disorders of bone density and structure, multiple sites, R73.01 - Impaired fasting glucose, Z78.0 - Asymptomatic menopausal state Alanine Aminotransferase 04/23/25 E03.9 - Hypothyroidism, unspecified, E78.5 - Hyperlipidemia, unspecified, M85.89 - Other specified disorders of bone density and structure, multiple sites, R73.01 - Impaired fasting glucose, Z78.0 - Asymptomatic menopausal state Basic Metabolic Panel Fasting 04/23/25 E03.9 - Hypothyroidism, unspecified, E78.5 - Hyperlipidemia, unspecified, M85.89 - Other specified disorders of bone density and structure, multiple sites, R73.01 - Impaired fasting glucose, Z78.0 - Asymptomatic menopausal state Vitamin D 25-OH Total 04/23/25 E03.9 - Hypothyroidism, unspecified, E78.5 - Hyperlipidemia, unspecified, M85.89 - Other specified disorders of bone density and structure, multiple sites, R73.01 - Impaired fasting glucose, Z78.0 - Asymptomatic menopausal state XR DEXA axial skeleton 05/12/25 M85.89 - Other specified disorders of bone density and structure, multiple sites Thyroid Stimulating Hormone 04/23/25 E03.9 - Hypothyroidism, unspecified, E78.5 - Hyperlipidemia, unspecified, M85.89 - Other specified disorders of bone density and structure, multiple sites, R73.01 - Impaired fasting glucose, Z78.0 - Asymptomatic menopausal state Aspartate Amino Transferase 04/23/25 E03.9 - Hypothyroidism, unspecified, E78.5 - Hyperlipidemia, unspecified, M85.89 - Other specified disorders of bone density and structure, multiple sites, R73.01 - Impaired fasting glucose, Z78.0 - Asymptomatic menopausal state
[2024-11-11 12:40] VITALS: BP 138/82; PULSE 98; RESP 16; TEMP 36.8; O2SAT 98; BMI 22.3
== END 2024-11-11 13:49 | disposition home or self-care (01) ==
LOC: HO.HMCC 12:23
PROVIDERS: PCP Internal Medicine; Visit Provider Internal Medicine
DX: Z00.00 Encounter for general adult medical examination without abnormal findings (principal); M85.89 Other specified disorders of bone density and structure, multiple sites; E78.5 Hyperlipidemia, unspecified; E03.9 Hypothyroidism, unspecified; R73.01 Impaired fasting glucose

== ENCOUNTER → 2024-11-11 12:22 | Outpatient (BNVA) | payer MEDICARE, OTHER, SELFPAY | PROVIDERS: PCP Internal Medicine; Visit Provider Internal Medicine | DX: Z00.01 Encounter for general adult medical examination with abnormal findings (principal); M85.89 Other specified disorders of bone density and structure, multiple sites; E78.5 Hyperlipidemia, unspecified; E03.9 Hypothyroidism, unspecified; R73.01 Impaired fasting glucose | CPT/HCPCS: 96127; 99397 ==

== ENCOUNTER 2025-05-13 08:34 | Outpatient (REF) | payer MEDICARE, OTHER, SELFPAY ==
--- OUTSIDE RECORDS SUMMARY | 2025-05-13 08:52 | XMS_ITS | Clinical Summary ---
Author Organization [facility] Address [address] [place] [id number] Phone Care Team Providers Care Regional Cra Name Role Phone Savita Butterfield MD Primary Care Provider Allergies No known active allergies Medications CALCIUM CARBONATE (CALCIUM 500 ORAL) Active af-zcz-ptqpl acid-lutein (ESSENTIAL WOMAN 50+) 0.4-250 mg-mcg Tab [...] Answer Date Recorded No 12/17/2022 No 12/17/2022 Reliable internet access at home? Not on file 12/17/2022 Device with a working camera? Not on file Comments Unknown Sex and Gender Information Value Date Recorded Sex Assigned at Not on file Legal Sex Female 10:35 PM EDT Gender Identity Not on file Sexual Orientation [...] TSH LEVEL 1960 DEPRESSION SCREENING 1971 HEPATITIS C SCREENING 1977 MAMMOGRAM 1999 COLOGUARD 02/18/2004 COLONOSCOPY 02/18/2004 COLORECTAL CANCER SCREENING 02/18/2004 FIT TEST 02/18/2004 FOBT 02/18/2004 SIGMOIDOSCOPY 02/18/2004 VIRTUAL COLONOSCOPY 02/18/2004 PNEUMOCOCCAL VACCINES (50+ years) (1 of 1 - PCV) 2009 OSTEOPOROSIS SCREENING INITI AL (ONE-TIME) 02/18/2024 INFLUENZA VACCINE (#1) 2025 , 09/06/2019, 05/17/2018 COVID-19 VACCINE (2 - 2024-2 6 season) 2025 10/22/2020 Adult Td,Tdap Booster 09/21/2030 09/21/2020 RSV [...] age to complete this topic MENINGOCOCCAL VACCINES (B) Aged Out N o longer eligible based on patient's age to complete this topic Medical Devices Not on file Insurance [facility] Member Subscriber Plan / Payer (Ef fective 2020-Present) Name:Liseth Rebolledo Relation to Subscriber:Self Name:Liseth Rebolledo Payer ID:Not on file Type:O Address: [place] [id number] Care Teams Regional Cra Relationship Specialty Start Date End Date Savita Butterfield MD [address] [address] PCP - General 05/11/17 Additional Source Comments The information contained in this document represents components of the legal health record. It is not the complete legal health record.[facility]
--- OUTSIDE RECORDS SUMMARY | 2025-05-13 08:52 | XMS_ITS ---
Author Organization Unknown ENCOUNTERS Encounter Performer Location Date Diagnosis Diagnosis Status Pre Admit [address] [address] [id number] Outpatient [address] [address] [id number] JESÚS *Note: Encounters from your own facility or health system may be excluded. Allergies, Adverse Reactions, Alerts Allergen Type Severity Identification Date Medications Name Date Quantity Days Supplied GPI Number
--- OUTSIDE RECORDS SUMMARY | 2025-05-13 08:52 | XMS_ITS | Patient Health Record ---
Author Organization [facility] Address [address] [place] [address] Care Team Providers Care Masking Machine Operator Name Role Phone Scout ARMENTA, Savita Primary Care Provider Medhat Patel Unavailable [phone] Reason For Referral No Information Medications Medication [...] Problem Status W/U Status Risk Notes Problem Screening for malignant neoplasm of colon (227600891) Encounter for screening for malignant neoplasm of colon (Z12.11) Active confirmed Problem History of adenomatous polyp of colon (398530702) History of adenomatous polyp of colon (Z86.010) Active confirmed Problem Screening for malignant neoplasm of rectum (846074297) Encounter for screening for malignant neoplasm of rectum (Z12.12) Active confirmed Problem Preprocedural examination (250038874838191) Preprocedural examination (Z01.818) Active confirmed Problem Diverticulosis of colon (606877582) Diverticulosis of colon (K57.30) Active confirmed Plan Of Treatment Future Test Test Name Order Date COLONOSCOPY 12/20/2011 COLONOSCOPY 11/09/2016 COLONOSCOPY 11/11/2021 Insurance Providers Payer Name Payer Address Payer Phone Subscriber Number Group Number Insured Name Patient Relationship to Insured Coverage Start Date Coverage End Date [facility] [address] [place] [address] [phone] [id number] JORGE MARQUES Self - patient is the insured Medical (General) History Medical History History ICD Code Denies CO,DM,CVA,Lung disease,renal dise ase Hypothyroidism Colonoscopy in 12/2011--small tubular lizette nomas, diverticulosis Colonoscopy in 12/2016 with a small tubul ar adenoma Surgical History Surgery Date(Month/Year) Benign breast biopsy Stage 1 Melanoma removed from chest wall 01/2021
[2025-05-13 13:13] LABS: Alanine Aminotransferase 19 U/L (0-31); Anion Gap 10 (12-20); Aspartate Amino Transferase 24 U/L (5-31); Blood Urea Nitrogen 19 mg/dL (9-16); Calcium 9.1 mg/dL (8.4-10.2); Carbon Dioxide 27 mmol/L (22-29); Chloride 102 mmol/L (96-108); Cholesterol 194 mg/dL (<200); Estimated Glomerular Filt Rate > 60; HDL Cholesterol 68 mg/dL (>40); Potassium 4.0 mmol/L (3.3-5.1); Sodium 135 mmol/L (135-145); Triglycerides 59 mg/dL (<150)
[2025-05-13 14:15] LABS: Free T4 (Free Thyroxine) 1.24 ng/dL (0.71-1.85); Thyroid Stimulating Hormone 3.97 uIU/mL (0.32-4.0)
== END 2025-05-13 08:35 | disposition home or self-care (01) ==
LOC: HO.HMGCLDS 08:34
PROVIDERS: PCP Internal Medicine; Visit Provider Internal Medicine
DX: M85.89 Other specified disorders of bone density and structure, multiple sites (principal); E03.9 Hypothyroidism, unspecified; E78.5 Hyperlipidemia, unspecified; R73.01 Impaired fasting glucose; Z78.0 Asymptomatic menopausal state
CPT/HCPCS: 36415; 80048; 80061; 82306; 84439; 84443; 84450; 84460

== ENCOUNTER 2025-05-15 10:40 | Outpatient (REF) | payer MEDICARE, OTHER, SELFPAY ==
--- NOTE | ~2025-05-15 | MM_ITS ---
EXAMINATION: DXA BONE DENSITY AXIAL HISTORY: M85.89 - Other specified disorders of bone density and structure, multip... TECHNIQUE: [employer] Dual energy absorptiometry (DEXA) of the lumbar spine, total left hip, and femoral neck was performed. COMPARISON: Previous exams most recent March 2023 FINDINGS: The bone mineral density of the lumbar spine is 1.38 g/cm2, corresponding to a T-score of 1.7, and a Z-score of 3.4. This is indicative of normal bone mineral density. This represents a BMD change of 6.2% compared to the prior exam and 3.8% compared to baseline. The bone mineral density of the left total hip is 0.814 g/cm2, corresponding to a T-score of -1.5, and a Z-score of -0.2. This is indicative of osteopenia. This represents a BMD change of -1.6% compared to the prior exam and -7.2% compared to baseline. The bone mineral density of the left femoral neck is 0.726 g/cm2, corresponding to a T-score of -2.2, and a Z-score of -0.7. This is indicative of osteopenia. This represents a BMD change of 2.5% compared to the prior exam and -15.2% compared to baseline. FRACTURE RISK: The FRAX index suggests a ten year probability of major osteoporotic fracture of 11.8%, and of hip fracture 2.3%. MM/XR DEXA axial skeleton IMPRESSION: Based on bone mineral density, and according to World Health Organization (WHO) criteria, the diagnosis is consistent with osteopenia based on T score of -2.2 in the left femoral neck. Statistically, 68% of repeat scans fall within 1 SD (+/- 0.010 g/cm2 for AP spine L1-L4) and 1 SD (+/- 0.012 g/cm2 for femur total) FRAX is a trademark of the [employer]'s [employer] Metabolic Bone Disease, a World Health Organization (WHO) Collaborating Center. Electronically signed by: Lorenza Curtis MD 05/15/2025 11:29 AM EDT
--- NOTE | ~2025-05-15 | MM_ITS ---
EXAMINATION: MM SCREENING DIGITAL BREAST TOMOSYNTHESIS, BILATERAL CLINICAL INFORMATION: Screening. Asymptomatic. COMPARISON: Mammography: Comparison is made with available priors TECHNIQUE: Digital breast mammography with tomosynthesis is performed in both the craniocaudal and mediolateral oblique views along with computer-aided detection (CAD). FINDINGS: There are scattered areas of fibroglandular density. Right marker clip. There are no significant masses, abnormal calcifications, or other abnormalities. MM/MM tomosynthesis screening BI IMPRESSION: No mammographic evidence of malignancy. ASSESSMENT: BI-RADS Category 2: Benign RECOMMENDATION: Routine annual mammography screening. 1 year F/U This examination should not preclude the clinical evaluation of a suspicious palpable abnormality. This patient's information was entered into a reminder system with a target due date for their next mammogram. Electronically signed by: Jennifer Shelton DO 05/16/2025 08:49 AM EDT
--- OUTSIDE RECORDS SUMMARY | 2025-05-15 13:04 | XMS_ITS | Clinical Summary ---
Author Organization [facility] Address [address] [place] [phone] Phone Care Team Providers Care Lining Vamper Name Role Phone Savita Butterfield MD Primary Care Provider Allergies No known active allergies Medications CALCIUM CARBONATE (CALCIUM 500 ORAL) Active sf-zde-ztgmn acid-lutein (ESSENTIAL WOMAN 50+) 0.4-250 mg-mcg Tab [...] topic Medical Devices Not on file [facility] Member Subscriber Plan / Payer (Ef fective 2020-Present) Name:Liseth Rebolledo Relation to Subscriber:Self Name:Liseth Rebolledo Payer ID:Not on file Type:O Address: [place] [id number] Care Teams Lining Vamper Relationship Specialty Start Date End Date Savita Butterfield MD [address] [address] PCP - General 05/11/17 Additional Source Comments The information contained in this document represents components of the legal health record. It is not the complete legal health record.[facility]
--- OUTSIDE RECORDS SUMMARY | 2025-05-15 13:04 | XMS_ITS | Patient Health Record ---
Author Organization [facility] Address [address] [place] [address] Care Team Providers Care Truck Driver Salesperson Name Role Phone Scout ARMENTA, Savita Primary Care Provider Medhat Patel Unavailable [phone] Reason For Referral No Information Medications Medication [...] Problem Screening for malignant neoplasm of colon (370187942) Encounter for screening for malignant neoplasm of colon (Z12.11) Active confirmed Problem History of adenomatous polyp of colon (813665958) History of adenomatous polyp of colon (Z86.010) Active confirmed Problem Screening for malignant neoplasm of rectum (824289256) Encounter for screening for malignant neoplasm of rectum (Z12.12) Active confirmed Problem Preprocedural examination (337433823596897) Preprocedural examination (Z01.818) Active confirmed Problem Diverticulosis of colon (965345778) Diverticulosis of colon (K57.30) Active confirmed Plan Of Treatment Future Test Test Name Order Date COLONOSCOPY 12/20/2011 COLONOSCOPY 11/09/2016 COLONOSCOPY 11/11/2021 Insurance Providers Payer Name Payer Address Payer Phone Subscriber Number Group Number Insured Name Patient Relationship to Insured Coverage Start Date Coverage End Date [facility] [address] [place] [phone] [id number] JORGE MARQUES Self - patient is the insured Medical (General) History Medical History History ICD Code Denies [place],DM,CVA,Lung disease,renal dise ase Hypothyroidism Colonoscopy in 12/2011--small tubular lizette nomas, diverticulosis Colonoscopy in 12/2016 with a small tubul ar adenoma Surgical History Surgery Date(Month/Year) Benign breast biopsy Stage 1 Melanoma removed from chest wall 01/2021
--- OUTSIDE RECORDS SUMMARY | 2025-05-15 13:04 | XMS_ITS ---
Author Organization Unknown ENCOUNTERS Encounter Performer Location Date Diagnosis Diagnosis Status Pre Admit [address] [id number] [address] [address] [id number] JESÚS *Note: Encounters from your own facility or health system may be excluded. Allergies, Adverse Reactions, Alerts Allergen Type Severity Identification Date Medications Name Date Quantity Days Supplied GPI Number
== END 2025-05-15 10:41 | disposition home or self-care (01) ==
LOC: HO.MAMMO 10:40
PROVIDERS: PCP Internal Medicine; Visit Provider Internal Medicine
DX: Z12.31 Encounter for screening mammogram for malignant neoplasm of breast (principal); Z13.820 Encounter for screening for osteoporosis; M85.89 Other specified disorders of bone density and structure, multiple sites
CPT/HCPCS: 77063; 77067; 77080

== ENCOUNTER → 2025-05-15 11:00 | Outpatient (BNV) | payer MEDICARE, OTHER, SELFPAY | PROVIDERS: PCP Internal Medicine; Visit Provider Radiology Diagnostic Radiology | DX: E28.39 Other primary ovarian failure (principal) | CPT/HCPCS: 77080 ==

== ENCOUNTER 2025-05-21 09:04 | Outpatient (AMB) | payer MEDICARE, OTHER, SELFPAY ==
[2025-05-21 09:14] VITALS: BP 142/78; PULSE 99; RESP 15; TEMP 36.5; O2SAT 97; BMI 22.6
--- NOTE | 2025-05-21 09:14 | MHC.PC.OV ---
Vital Signs 05/21/25 09:14 05/21/25 09:49 Height 5 ft 4.5 in Weight 134 lb BMI 22.6 BP 142/78 H 130/85 Blood Pressure Location Rt brachial Rt brachial Position Sitting Sitting Respiration 15 Pulse 99 Pulse Source Pulse Oximeter Temp 97.7 F Temp Source Oral Pulse Oximetry (%) 97 Oxygen Delivery Method Room Air Intake Visit Reasons: 6m follow up Photogrammetric Engineer Required: No Allergies No Known Allergies (No Known Allergies*) Allergy (Verified 05/21/25 09:37) Medication List - Last Reconciled 05/21/25 by Savita Butterfield MD atorvastatin 10 mg PO 3XW 3 months clonazepam 0.5 mg PO BID PRN fluocinonide 0.05% topical hydrocortisone 2.5% appl topical levothyroxine 50 mcg PO QAM Tobacco use date assessed: 05/21/25 Fall risk assessment: No Falls in past year Last assessed Fall Risk: 05/21/25 Dental Screening Dental Screen Date: 05/21/25 Did you have a dental visit in the last 12 months?: Yes Did you have a dental problem in the last 6 months where you did not have access to dental care?: No Was dental information given to patient?: Patient has dentist HPI 6m follow up HPI Details 65 year-old lady with history of dyslipidemia, hypothyroidism, adenomatous polyps of colon removed on last colonoscopy in 2021, here today for her physical exam. She is up-to-date with her screening mammogram done last April 2024, has an appointment already scheduled for May 12 2025 for a repeat mammogram.. Her last bone density scan was done in 2022 which showed presence of osteopenia in multiple sites, no history of fractures. Compliant with taking her medications and adhering to recommended diet and getting regular exercise. Has been feeling well no complaints at present time. [facility] Medical History Impaired fasting glucose Anxiety with flying Hx of malignant melanoma Osteopenia of multiple sites Malignant melanoma of chest wall History of mammogram History of Papanicolaou smear of cervix Tubular adenoma of colon Acquired hypothyroidism Postmenopausal Dyslipidemia Surgical History H/O melanoma excision History of lipoma History of colonoscopy Family History Father HTN (hypertension) Hyperlipidemia Sepsis Mother Medical history non-contributory Brother No problems noted. Brother No problems noted. Sister No problems noted. Son No problems noted. Daughter No problems noted. Social History Housing: House Alcohol intake: current Alcohol intake frequency: does not drink Patient Tobacco Use Status: Never used Tobacco e-Cigarette/Vaping Use: Never Used Second Hand Smoke Exposure: No Current occupational status: retired Cognitive needs: No Hearing needs: No Vision needs: Yes Questionnaire PHQ-9 Over the last 2 weeks, how often have you been bothered by any of the following problems? 1. Little interest or pleasure in doing things: not at all 2. Feeling down, depressed, or hopeless: not at all 3. Trouble falling or staying asleep, or sleeping too much: not at all 4. Feeling tired or having little energy: not at all 5. Poor appetite or overeating: not at all 6. Feeling bad about yourself - or that you are a failure or have let yourself or your family down: not at all 7. Trouble concentrating on things, such as reading the newspaper or watching television: not at all 8. Moving or speaking so slowly that other people could have noticed. Or the opposite - being so fidgety or restless that you have been moving around a lot more than usual: not at all 9. Thoughts that you would be better off or of hurting yourself in some way: not at all Total score: 0 Depression Screening Interpretation: Negative Depression Screening Done: Yes Source: Developed by Drs. Medhat Catherine, Ofelia Bustos, Ezequiel Crow and colleagues, with an educational pepper from [employer]. Thrive Questionnaire Date Thrive assessed: 05/15/25 I am a: Patient What is your living situation today?: I have a steady place to live Within the past 12 months, did the food you bought not last and you didn't have the money to get more?: Never true Within the past 12 months, did you worry whether your food would run out before you got money to buy more?: Never true Do you have trouble paying for medicines?: No Do you have trouble getting transportation to medical appointments?: No Do you have trouble paying your heating and electricity bill?: No Do you have trouble taking care of your child, family member or friend?: No Do you have trouble with day-to-day activities such as bathing, preparing meals, shopping, managing finances, etc.?: No Are you currently unemployed and looking for a job?: I choose not to answer this question Are you interested in more education?: I choose not to answer this question Please select the resources that you would like help with: None Currently or been in a relationship where the following occur: No concerns reported THRIVE Score: 0 AUDIT C Alcohol Use Questionnaire (AUDIT-C) 1. How often do you have a drink containing alcohol?: Never Total Score: 0 ALEXX-7 AMB Questionnaire ALEXX-7 Date ALEXX - 7 assessed: 11/11/24 Feeling nervous, anxious, or on edge: 0 = Not at all Not being able to stop or control worryin = Not at all Worrying too much about different things: 0 = Not at all Trouble relaxin = Not at all Being so restless that it is hard to sit still: 0 = Not at all Becoming easily annoyed or irritable: 0 = Not at all Feeling afraid as if something awful might happen: 0 = Not at all Total ALEXX-7 score (0-4 normal; 5-9 mild; 10-14 moderate; 15-21 severe): 0 Source: Developed by Drs. Medhat Catherine, Ofelia Bustos, Ezequiel Crow and colleagues, with an educational pepper from [employer]. Review of Systems Const Denies body aches, Denies fatigue, Denies fever(s), Denies headache(s) and Denies weakness Eyes Details: sees Dr Lucio in [place] Denies change in vision, Denies eye discharge and Denies itchy eyes ENT Denies dizziness, Denies headache(s), Denies nasal congestion, Denies nasal discharge and Denies sore throat Card Denies chest pain, Denies lightheadedness, Denies palpitations and Denies dyspnea Resp Denies chest congestion, Denies cough, Denies dyspnea and Denies wheezing GI Denies abdominal pain, Denies change in bowel habits and Denies heartburn Details: Sees Melody Tinajero for her routine Pap and pelvic exam, up-to-date Denies urinary frequency, Denies dysuria and Denies urinary urgency Musc Denies back pain, Denies myalgias, Denies arthralgias and Denies joint swelling Skin/Breast Details: Sees her change management facilitator once a year Denies lesions and Denies rash Neuro Denies behavioral changes, Denies dizziness, Denies headache(s) and Denies weakness Psych Denies anxiety, Denies behavioral changes, Denies change in appetite and Denies depression Endo Denies fatigue, Denies polydipsia, Denies polyuria and Denies palpitations Merritt/Lymph Denies easy bruising Aller/Immun Denies itchy eyes, Denies seasonal rhinorrhea and Denies wheezing Physical exam (Primary Care) Vital Signs: Last Vital Signs Temp 97.7 F 05/21/25 09:14 Pulse 99 05/21/25 09:14 Resp 15 05/21/25 09:14 BP 130/85 05/21/25 09:49 Pulse Ox 97 05/21/25 09:14 Oxygen Delivery Method Room Air 05/21/25 09:14 BMI result Body Mass Index 22.6 Tobacco/Smoking Status: Tobacco use Status Tobacco use date assessed 05/21/25 05/21/25 09:19 Patient Tobacco Use Status Never used Tobacco 05/21/25 09:19 e-Cigarette/Vaping Use Never Used 05/21/25 09:19 PHQ-9: PHQ-9 Score PHQ-9: Total score 0 05/21/25 09:57 Depression Screening Interpretation: Negative Thrive Assessment: Date of Thrive Assessment Date Thrive assessed 05/15/25 05/21/25 09:19 Currently or been in a relationship where the following occur: No concerns reported Const Orientation/consciousness: patient oriented x3 HENMT Head: Yes normocephalic and Yes atraumatic Ears: hearing grossly normal bilaterally, TM's normal bilaterally and EAC's normal General nose exam: Normal external nose present and No nasal discharge present Mouth: Normal oral and palatal mucosa present and moist mucous membranes Eyes General: appearance normal, both eyes and all related structures (sees Dr Lucio regularly for her eye exam) Neck Neck: Yes full ROM, Yes no lymphadenopathy, Yes no meningeal signs and Yes supple Thyroid: Thyroid normal Chest Chest palpation & inspection: normal inspection of the chest Breast/axilla palpation: normal palpation of the breasts Resp Effort & Inspection: normal respiratory effort Auscultation: clear to auscultation bilaterally Cardio Other: S1-S2 present regular rate Palpation: normal PMI Bruits: no abdominal aortic bruits GI Inspection: Yes normal to inspection Palpation (GI): No Abdominal aortic bruit present, Soft to palpation, nontender, no guarding and no masses Auscultation: normal bowel sounds General: Yes no CVA tenderness and Yes deferred (Goes to her own OBGYN) Back/Spine/Pelvis Back: no CVA tenderness and No back tenderness Skin General skin exam: no rashes or lesions noted (some freckles on upper back) Neuro General: patient oriented x3, gait normal, tone normal, moves all extremities, Normal light touch and pain sensation, no meningeal signs, no focal motor deficits and CN's II-XI intact bilaterally Gait exam (Neuro): Normal gait present Extrem General: Yes full ROM, Yes no joint enlargement, Yes no pedal edema, Yes no calf tenderness and Yes normal gait Psych Appearance: grossly normal Mental Status: mental status grossly normal Speech and movement: Normal speech and movement present Affect: normal affect Attitude: cooperative Thought process: Normal thought process present Thought content: Normal thought content present Results Reviewed Results Reviewed: Name: Liseth Rebolledo Age/Sex: 65/F [facility] 1960 [id number] [id number] Attend Dr: Savita Butterfield MD Re05/13/25 Status: DEP REF Location: [facility] Disch: SPEC : [id number] MARY: 05/13/25 STATUS: COMP REQ : [id number] RECD: 05/13/[address]: Savita Butterfield MD COMP: 05/13/25 ENTERED: 05/13/[address]: ORDERED: Met Prof Fast, AST, ALT, Lipid Panel, Vitamin D 25-OH, Free T4, TSH Test Result Flag Reference Sodium 135 135-145 mmol/L Potassium 4.0 3.3-5.1 mmol/L CL 102 96-108 mmol/L CO2 27 22-29 mmol/L Gap 10 L 12-20 BUN 19 H 9-16 mg/dL Creat 0.74 0.5-1.4 mg/dL eGFR > 60 Chronic Kidney Disease: Estimated GFR < 60 mL/min/1.73m2 Severe Kidney Disease: Estimated GFR < 15 mL/min/1.73m2 FBS 95 60-99 mg/dL CA 9.1 8.4-10.2 mg/dL AST (GOT) 24 5-31 U/L ALT (GPT) 19 0-31 U/L Triglyceride 59 <150 mg/dL Desirable Triglyceride: less than 150 mg/dL Borderline High Triglyceride 150-199 mg/dL High Triglyceride: 200-499 mg/dL Very High Triglyceride: greater than or equal to 5OO mg/dL Cholesterol 194 <200 mg/dL Desirable Cholesterol: less than 200 mg/dL Borderline High Cholesterol: 200-239 mg/dL High Cholesterol: greater than 239 mg/dL LDL Calculated 115 H <100 mg/dL Desirable LDL: less than 100 mg/dL Near Optimal/Above Optimal LDL: 110-129 mg/dL Borderline High LDL: 130-159 mg/dL High LDL: 160-189 mg/dL Very High LDL: greater than or equal to 190 mg/dL HDL 68 >40 mg/dL Desirable HDL: greater than 40 mg/dL Note: This HDL assay may give artificially low results in patients with liver disease. Vitamin D 25-OH 64.3 >30 ng/mL Health Based Reference Values* < 20 ng/mL Deficient 20-30 ng/mL Insufficient > 30 ng/mL Sufficient *Breana HARRIS. N Engl J Med. 2007;357:266-280 There is no well-established upper level of normal vitamin D levels. Some laboratories use 50 ng/mL as an upper limit of normal. However, toxicity is patient-dependent and may occur at any level. Careful correlation with the patient's presentation is necessary and, if there is concern for vitamin D toxicity, treatment should be considered irrespective of the serum level. Care must be taken in interpreting Vitamin D results from different laboratories and methodologies. Published data demonstrated that results from patients undergoing hemodialysis may show a negative bias when tested with various automated 25-OH vitamin D assays when compared to LC-MS/MS. When testing samples from patients whose predominant form of Vitamin D is Vitamin D2, such as patients receiving Vitamin D2 supplementation, results that are subtherapeutic should be confirmed with another method such as LC-MS/MS. Free T4 1.24 0.71-1.85 ng/dL TSH 3rd Gen. 3.97 0.32-4.0 uIU/mL Note: A sustained TSH level above 2.5 uIU/mL may warrant further investigation. TSH 3rd Generation ([facility]) Coding Level of Care Code Est Pt Level 4 (16509) Complex EM visit Add On G2211 Diagnoses Acquired hypothyroidism E03.9 Osteopenia of multiple sites M85.89 Dyslipidemia E78.5 Assessment & Plan Assessment & Plan (1) Acquired hypothyroidism: Code(s): E03.9 - Hypothyroidism, unspecified Category: Medical Plan: Continue current dose of levothyroxine 50 mcg daily in the morning (2) Osteopenia of multiple sites: Code(s): M85.89 - Other specified disorders of bone density and structure, multiple sites Category: Medical Plan: Stressed importance of doing regular weight-bearing exercise, take adequate calcium from dietary sources and take at least 2000 units of vitamin D3 daily. Repeat another bone density scan together with mammogram next year (3) Dyslipidemia: Code(s): E78.5 - Hyperlipidemia, unspecified Category: Medical Plan: Continue atorvastatin 10 mg taken 1 tablet 3 times a week. In addition to adherence to healthy eating habits and regular exercise.
[2025-05-21 09:49] VITALS: BP 130/85
--- OUTSIDE RECORDS SUMMARY | 2025-05-21 10:10 | XMS_ITS | Patient Health Record ---
Author Organization [facility] Address [address] [place] [address] Care Team Providers Care Joint Special Operations Name Role Phone Scout ARMENTA, Savita Primary Care Provider Medhat Patel Unavailable [phone] Reason For Referral No Information Medications Medication [...] Problem Screening for malignant neoplasm of colon (638645586) Encounter for screening for malignant neoplasm of colon (Z12.11) Active confirmed Problem History of adenomatous polyp of colon (074243075) History of adenomatous polyp of colon (Z86.010) Active confirmed Problem Screening for malignant neoplasm of rectum (295079901) Encounter for screening for malignant neoplasm of rectum (Z12.12) Active confirmed Problem Preprocedural examination (239778167310959) Preprocedural examination (Z01.818) Active confirmed Problem Diverticulosis of colon (570916313) Diverticulosis of colon (K57.30) Active confirmed Plan Of Treatment Future Test Test Name Order Date COLONOSCOPY 12/20/2011 COLONOSCOPY 11/09/2016 COLONOSCOPY 11/11/2021 Insurance Providers Payer Name Payer Address Payer Phone Subscriber Number Group Number Insured Name Patient Relationship to Insured Coverage Start Date Coverage End Date [facility] [address] [place] [address] [id number] JORGE MARQUES Self - patient is the insured Medical (General) History Medical History History ICD Code Denies [place],DM,CVA,Lung disease,renal dise ase Hypothyroidism Colonoscopy in 12/2011--small tubular lizette nomas, diverticulosis Colonoscopy in 12/2016 with a small tubul ar adenoma Surgical History Surgery Date(Month/Year) Benign breast biopsy Stage 1 Melanoma removed from chest wall 01/2021
--- OUTSIDE RECORDS SUMMARY | 2025-05-21 10:12 | XMS_ITS | Clinical Summary ---
Author Organization [facility] Address [address] [place] [id number] Phone Care Team Providers Care Behavior Clinician Name Role Phone Savita Butterfield MD Primary Care Provider Allergies No known active allergies Medications CALCIUM CARBONATE (CALCIUM 500 ORAL) Active lv-cjv-roymn acid-lutein (ESSENTIAL WOMAN 50+) 0.4-250 mg-mcg Tab [...] topic Medical Devices Not on file Insurance [facility] Member Subscriber Plan / Payer (Ef fective 2020-Present) Name:Liseth Rebolledo Relation to Subscriber:Self Name:Liseth Rebolledo Payer ID:Not on file Type:O Address: [place] [id number] Care Teams Behavior Clinician Relationship Specialty Start Date End Date Savita Butterfield MD [address] [place] [address] PCP - General 05/11/17 Additional Source Comments The information contained in this document represents components of the legal health record. It is not the complete legal health record.[facility]
== END 2025-05-21 09:59 | disposition home or self-care (01) ==
LOC: HO.HMCC 09:05
PROVIDERS: PCP Internal Medicine; Visit Provider Internal Medicine
DX: E03.9 Hypothyroidism, unspecified (principal); M85.89 Other specified disorders of bone density and structure, multiple sites; E78.5 Hyperlipidemia, unspecified

== ENCOUNTER → 2025-05-21 09:04 | Outpatient (BNVA) | payer MEDICARE, OTHER, SELFPAY | PROVIDERS: PCP Internal Medicine; Visit Provider Internal Medicine | DX: E03.9 Hypothyroidism, unspecified (principal); E78.5 Hyperlipidemia, unspecified; M85.89 Other specified disorders of bone density and structure, multiple sites | CPT/HCPCS: 99212 ==